=== PATIENT | male | born 1940 | race Two or more races ===

== ENCOUNTER 2018-12-27 15:43 | Inpatient (IN) | payer SELFPAY ==
[~2018-12-27] VITALS: Ht 167.6 cm; Wt 60.3 kg
--- NOTE | 2018-12-27 16:22 | PHYS DOC ---
Adult General Chief Complaint Chief Complaint: SHORTNESS OF BREATH HPI HPI Patient is a 78 year old male who presents with multiple complaints. Patient states that he has been having shortness of air, cough, dizziness that has been ongoing for 3 weeks. She also states that he's had a facial droop that started a week ago, also has had right-sided weakness that started a week ago and that has been making it difficult to eat in the mornings however it improves as the day goes on. Denies any pain currently. Has unknown what medicines this individual is on as he does not have medicine list. Hx of strokes. He is a poor historian. Review of Systems Review of Systems Constitutional: Denies fever or chills [] Eyes: Denies change in visual acuity, redness, or eye pain [] HENT: Denies nasal congestion or sore throat [] Respiratory: Reports cough and shortness of breath [] Cardiovascular: No additional information not addressed in HPI [] GI: Denies abdominal pain, nausea, vomiting, bloody stools or diarrhea [] : Denies dysuria or hematuria [] Musculoskeletal: Denies back pain or joint pain [] Integument: Denies rash or skin lesions [] Neurologic: Reports dizziness that gets better as the day progresses. Denies headache, focal weakness or sensory changes [] Endocrine: Denies polyuria or polydipsia [] Complete systems were reviewed and found to be within normal limits, except as documented in this note. Current Medications Current Medications Allergies Allergies Allergies Coded Allergies Type Severity Reaction Last Updated Verified No Known Drug Allergies 12/27/18 No Physical Exam Physical Exam Constitutional: Well developed, well nourished, no acute distress, non-toxic appearance. [] HENT: Normocephalic, atraumatic, bilateral external ears normal, oropharynx moist, no oral exudates, nose normal. [] Eyes: PERRLA, EOMI, conjunctiva normal, no discharge. [] Neck: Normal range of motion, no tenderness, supple, no stridor. [] Cardiovascular:Heart rate regular rhythm, no murmur [] Lungs & Thorax: Bilateral breath sounds clear to auscultation [] Abdomen: Bowel sounds normal, soft, no tenderness, no masses, no pulsatile masses. [] Skin: Warm, dry, no erythema, no rash. [] Back: No tenderness, no CVA tenderness. [] Extremities: No tenderness, no cyanosis, no clubbing, ROM intact, no edema. [] Neurologic: Alert and oriented X 3, normal motor function, normal sensory function, no focal deficits noted. [] Psychologic: Affect normal, judgement normal, mood normal. [] NIHSS of 3. Administer stroke scale items in the order listed. Record performance in each category after each subscale exam. Do not go back and change scores. Follow directions provided for each exam technique. Scores should reflect what the patient does, not what the clinician thinks the patient can do. The clinician should record answers while administering the exam and work quickly. Except where indicated, the patient should not be coached (i.e., repeated requests to patient to make a special effort). 1a. Level of Consciousness: The retail loss prevention investigator must choose a response if a full evaluation is prevented by such obstacles as an endotracheal tube, language barrier, orotracheal trauma/bandages. A 3 is scored only if the patient makes no movement (other than reflexive posturing) in response to noxious stimulation. 0 = Alert; keenly responsive. 1 = Not alert; but arousable by minor stimulation to obey, answer, or respond. 2 = Not alert; requires repeated stimulation to attend, or is obtunded and requires strong or painful stimulation to make movements (not stereotyped). 3 = Responds only with reflex motor or autonomic effects or totally unresponsive, flaccid, and areflexic. 1b. LOC Questions: The patient is asked the month and his/her age. The answer must be correct - there is no partial credit for being close. Aphasic and stuporous patients who do not comprehend the questions will score 2. Patients unable to speak because of endotracheal intubation, orotracheal trauma, severe dysarthria from any cause, language barrier, or any other problem not secondary to aphasia are given a 1. It is important that only the initial answer be graded and that the examiner not "help" the patient with verbal or non-verbal cues. 0 = Answers both questions correctly. 1 = Answers one question correctly. 2 = Answers neither question correctly. 1c. LOC Commands: The patient is asked to open and close the eyes and then to preschool teacher's assistant and release the non-paretic hand. Substitute another one step command if the hands cannot be used. Credit is given if an unequivocal attempt is made but not completed due to weakness. If the patient does not respond to comm and, the task should be demonstrated to him or her (pantomime), and the result scored (i.e., follows none, one or two commands). Patients with trauma, amputation, or other physical impediments should be given suitable one- step commands. Only the first attempt is scored. 0 = Performs both tasks correctly. 1 = Performs one task correctly. 2 = Performs neither task correctly. 2. Best Gaze: Only horizontal eye movements will be tested. Voluntary or reflexive (oculocephalic) eye movements will be scored, but caloric testing is not done. If the patient has a conjugate deviation of the eyes that can be overcome by voluntary or reflexive activity, the score will be 1. If a patient has an isolated peripheral nerve paresis (CN III, IV or ), score a 1. Gaze is testable in all aphasic patients. Patients with ocular trauma, bandages, pre-existing blindness, or other disorder of visual acuity or funes should be tested with reflexive movements, and a choice made by the retail loss prevention investigator. Establishing eye contact and then moving about the patient from side to side will occasionally clarify the presence of a partial gaze palsy. 0 = Normal. 1 = Partial gaze palsy; gaze is abnormal in one or both eyes, but forced deviation or total gaze paresis is not present. 2 = Forced deviation, or total gaze paresis not overcome by the oculocephalic maneuver. Interval: [ ] Baseline [ ] 2 hours post treatment [ ] 24 hours post onset of symptoms 20 minutes [ ] 7-10 days [ ] 3 months [ ] Other ( ) 3. Visual: Visual funes (upper and lower quadrants) are tested by confrontation, using finger counting or visual threat, as appropriate. Patients may be encouraged, but if they look at the side of the moving fingers appropriately, this can be scored as normal. If there is unilateral blindness or enucleation, visual funes in the remaining eye are scored. Score 1 only if a clear-cut asymmetry, including quadrantanopia, is found. If patient is blind from any cause, score 3. Double simultaneous stimulation is performed at this point. If there is extinction, patient receives a 1, and the results are used to respond to item 11. 0 = No visual loss. 1 = Partial hemianopia. 2 = Complete hemianopia. 3 = Bilateral hemianopia (blind including cortical blindness). 4. Facial Palsy: Ask - or use pantomime to encourage - the patient to show teeth or raise eyebrows and close eyes. Score symmetry of grimace in response to noxious stimuli in the poorly responsive or non-comprehending patient. If facial trauma/bandages, orotracheal tube, tape or other physical barriers obscure the face, these should be removed to the extent possible. 0 = Normal symmetrical movements. 1 = Minor paralysis (flattened nasolabial fold, asymmetry on smiling). 2 = Partial paralysis (total or near-total paralysis of lower face). 3 = Complete paralysis of one or both sides (absence of facial movement in the upper and lower face). 5. Motor Arm: The limb is placed in the appropriate position: extend the arms (palms down) 90 degrees (if sitting) or 45 degrees (if supine). Drift is scored if the arm falls before 10 seconds. The aphasic patient is encouraged using urgency in the voice and pantomime, but not noxious stimulation. Each limb is tested in turn, beginning with the non-paretic arm. Only in the case of amputation or joint fusion at the shoulder, the examiner should record the score as untestable (UN), and clearly write the explanation for this choice. 0 = No drift; limb holds 90 (or 45) degrees for full 10 seconds. 1 = Drift; limb holds 90 (or 45) degrees, but drifts down before full 10 seconds; does not hit bed or other support. 2 = Some effort against gravity; limb cannot get to or maintain (if cued) 90 (or 45) degrees, drifts down to bed, but has some effort against gravity. 3 = No effort against gravity; limb falls. 4 = No movement. UN = Amputation or joint fusion, explain: 5a. Left Arm 5b. Right Arm 6. Motor Leg: The limb is placed in the appropriate position: hold the leg at 30 degrees (always tested supine). Drift is scored if the leg falls before 5 seconds. The aphasic patient is encouraged using urgency in the voice and pantomime, but not noxious stimulation. Each limb is tested in turn, beginning with the non-paretic leg. Only in the case of amputation or joint fusion at the hip, the examiner should record the score as untestable (UN), and clearly write the explanation for this choice. 0 = No drift; leg holds 30-degree position for full 5 seconds. 1 = Drift; leg falls by the end of the 5-second period but does not hit bed. 2 = Some effort against gravity; leg falls to bed by 5 seconds, but has some effort against gravity. 3 = No effort against gravity; leg falls to bed immediately. 4 = No movement. UN = Amputation or joint fusion, explain: 6a. Left Leg 6b. Right Leg Interval: [ ] Baseline [ ] 2 hours post treatment [ ] 24 hours post onset of symptoms 20 minutes [ ] 7-10 days [ ] 3 months [ ] Other ( ) 7. Limb Ataxia: This item is aimed at finding evidence of a unilateral cerebellar lesion. Test with eyes open. In case of visual defect, ensure testing is done in intact visual field. The oytoek-cdyc-saknyp and heel-benson tests are performed on both sides, and ataxia is scored only if present out of proportion to weakness. Ataxia is absent in the patient who cannot understand or is paralyzed. Only in the case of amputation or joint fusion, the examiner should record the score as untestable (UN), and clearly write the explanation for this choice. In case of blindness, test by having the patient touch nose from extended arm position. 0 = Absent. 1 = Present in one limb. 2 = Present in two limbs. UN = Amputation or joint fusion, explain: 8. Sensory: Sensation or grimace to pinprick when tested, or withdrawal from noxious stimulus in the obtunded or aphasic patient. Only sensory loss attributed to stroke is scored as abnormal and the examiner should test as many body areas (arms [not hands], legs, trunk, face) as needed to accurately check for hemisensory loss. A score of 2, "severe or total sensory loss," should only be given when a severe or total loss of sensation can be clearly demonstrated. Stuporous and aphasic patients will, therefore, probably score 1 or 0. The patient with brainstem stroke who has bilateral loss of sensation is scored 2. If the patient does not respond and is quadriplegic, score 2. Patients in a coma (item 1a=3) are automatically given a 2 on this item. 0 = Normal; no sensory loss. 1 = Owfv-lq-vymljrqn sensory loss; patient feels pinprick is less sharp or is dull on the affected side; or there is a loss of superficial pain with pinprick, but patient is aware of being touched. 2 = Severe to total sensory loss; patient is not aware of being touched in the face, arm, and leg. 9. Best Language: A great deal of information about comprehension will be obtained during the preceding sections of the examination. For this scale item, the patient is asked to describe what is happening in the attached picture, to name the items on the attached naming sheet and to read from the attached list of sentences. Comprehension is judged from responses here, as well as to all of the commands in the preceding general neurological exam. If visual loss interferes with the tests, ask the patient to identify objects placed in the hand, repeat, and produce speech. The intubated patient should be asked to write. The patient in a coma (item 1a=3) will automatically score 3 on this item. The examiner must choose a score for the patient with stupor or limited cooperation, but a score of 3 should be used only if the patient is mute and follows no one-step commands. 0 = No aphasia; normal. 1 = Hfvx-bc-vmrqztwe aphasia; some obvious loss of fluency or facility of comprehension, without significant limitation on ideas expressed or form of expression. Reduction of speech and/or comprehension, however, makes conversation about provided materials difficult or impossible. For example, in conversation about provided materials, examiner can identify picture or naming card content from patient's response. 2 = Severe aphasia; all communication is through fragmentary expression; great need for inference, questioning, and guessing by the listener. Range of information that can be exchanged is limited; listener carries burden of communication. Examiner cannot identify materials provided from patient response. 3 = Mute, global aphasia; no usable speech or auditory comprehension. 10. Dysarthria: If patient is thought to be normal, an adequate sample of speech must be obtained by asking patient to read or repeat words from the attached list. If the patient has severe aphasia, the clarity of articulation of spontaneous speech can be rated. Only if the patient is intubated or has other physical barriers to producing speech, the examiner should record the score as untestable (UN), and clearly write an explanation for this choice. Do not tell the patient why he or she is being tested. 0 = Normal. 1 = Gdyk-mc-hdwcwpwj dysarthria; patient slurs at least some words and, at wors t, can be understood with some difficulty. 2 = Severe dysarthria; patient's speech is so slurred as to be unintelligible in the absence of or out of proportion to any dysphasia, or is mute/anarthric. UN = Intubated or other physical barrier, explain: Interval: [ ] Baseline [ ] 2 hours post treatment [ ] 24 hours post onset of symptoms 20 minutes [ ] 7-10 days [ ] 3 months [ ] Other ( ) 11. Extinction and Inattention (formerly Neglect): Sufficient information to identify neglect may be obtained during the prior testing. If the patient has a severe visual loss preventing visual double simultaneous stimulation, and the cutaneous stimuli are normal, the score is normal. If the patient has aphasia but does appear to attend to both sides, the score is benoit l. The presence of visual spatial neglect or anosagnosia may also be taken as evidence of abnormality. Since the abnormality is scored only if present, the item is never untestable. 0 = No abnormality. 1 = Visual, tactile, auditory, spatial, or personal inattention or extinction to bilateral simultaneous stimulation in one of the sensory modalities. 2 = Profound luis-inattention or extinction to more than one modality; does not recognize own hand or orients to only one side of space. Current Patient Data Vital Signs Vital Signs Date Time Temp Pulse Resp B/P (MAP) Pulse Ox O2 Delivery O2 Flow Rate FiO2 12/27/18 16:00 98.6 71 23 184/86 (118) 95 Room Air 98.6 Lab Values Laboratory Tests Test 12/27/18 16:12 12/27/18 16:17 White Blood Count 6.0 x10^3/uL (4.0-11.0) Red Blood Count 2.00 x10^6/uL (4.30-5.70) L Hemoglobin 6.0 g/dL (13.0-17.5) *L Hematocrit 18.5 % (39.0-53.0) *L Mean Corpuscular Volume 93 fL (79-100) Mean Corpuscular Hemoglobin 30 pg (25-35) Mean Corpuscular Hemoglobin Concent 33 g/dL (31-37) Red Cell Distribution Width 14.9 % (11.5-14.5) H Platelet Count 222 x10^3/uL (140-400) Neutrophils (%) (Auto) 56 % (31-73) Lymphocytes (%) (Auto) 26 % (24-48) Monocytes (%) (Auto) 14 % (0-9) H Eosinophils (%) (Auto) 3 % (0-3) Basophils (%) (Auto) 2 % (0-3) Neutrophils # (Auto) 3.3 x10^3uL (1.8-7.7) Lymphocytes # (Auto) 1.6 x10^3/uL (1.0-4.8) Monocytes # (Auto) 0.8 x10^3/uL (0.0-1.1) Eosinophils # (Auto) 0.2 x10^3/uL (0.0-0.7) Basophils # (Auto) 0.1 x10^3/uL (0.0-0.2) Prothrombin Time 28.2 SEC (11.7-14.0) H Prothrombin Time INR 2.7 (0.8-1.1) H PTT 43 SEC (24-38) H Sodium Level 142 mmol/L (136-145) Potassium Level 4.1 mmol/L (3.5-5.1) Chloride Level 107 mmol/L (98-107) Carbon Dioxide Level 24 mmol/L (21-32) Anion Gap 11 (6-14) Blood Urea Nitrogen 20 mg/dL (8-26) Creatinine 0.9 mg/dL (0.7-1.3) Estimated GFR (Cockcroft-Gault) 81.6 BUN/Creatinine Ratio 22 (6-20) H Glucose Level 118 mg/dL (70-99) H Calcium Level 8.3 mg/dL (8.5-10.1) L Total Bilirubin 0.4 mg/dL (0.2-1.0) Aspartate Amino Transferase (AST) 21 U/L (15-37) Alanine Aminotransferase (ALT) 42 U/L (16-63) Alkaline Phosphatase 59 U/L (46-116) Troponin I Quantitative < 0.017 ng/mL (0.000-0.055) GM-Smc-A-Type Natriuretic Peptide 3879 pg/mL (0-449) H Total Protein 5.9 g/dL (6.4-8.2) L Albumin 3.2 g/dL (3.4-5.0) L Albumin/Globulin Ratio 1.2 (1.0-1.7) Lipase 143 U/L (73-393) Urine Collection Type Unknown Urine Color Yellow Urine Clarity Clear Urine pH 6.5 Urine Specific [place] 1.015 Urine Protein 30 mg/dL (NEG-TRACE) Urine Glucose (UA) Negative mg/dL (NEG) Urine Ketones (Stick) Negative mg/dL (NEG) Urine Blood Negative (NEG) Urine Nitrite Negative (NEG) Urine Bilirubin Negative (NEG) Urine Urobilinogen Dipstick 1.0 mg/dL (0.2 mg/dL) Urine Leukocyte Esterase Negative (NEG) Urine RBC 1-2 /HPF (0-2) Urine WBC Occ /HPF (0-4) Urine Squamous Epithelial Cells Occ /LPF Urine Bacteria 0 /HPF (0-FEW) Laboratory Tests 12/27/18 16:12 Laboratory Tests 12/27/18 16:12 EKG EKG EKG interpreted by Dr. Pulido.[] Left Bundle Branch Block, Sinus of 73, No STEMI Radiology/Procedures Radiology/Procedures []PATIENT: CASSIUS AMOSACCOUNT: [id number]#: [id number] : 1940 LOCATION: ER AGE: 78 SEX: M EXAM STATUS: REG ER ORD. PHYSICIAN: DANISH SYED APRN REASON: R sided weakness and droop, short of air PROCEDURE: CT ANGIOGRAPHY CHEST CT ANGIOGRAPHY CHEST Indication: Right-sided weakness. Shortness of breath. . Technique: After intravenous contrast administration, CT imaging was performed of the chest. MIP reconstructions were obtained. Exposure: One or more of the following individualized dose reduction techniques were utilized for this examination: 1. Automated exposure control 2. Adjustment of the mA and/or kV according to patient size 3. Use of iterative reconstruction technique. No prior study for comparison FINDINGS: No evidence of pulmonary embolism. The ascending aorta measures 3.9 cm compatible with mild ectasia. No descending aortic aneurysm. Mild aortic calcification. There is a limited opacification of the aorta due to technique but no definite dissection. No significant lymph node enlargement. No evidence of thyroid mass. Coronary artery calcification. Heart size mildly enlarged. No pericardial effusion. Small left pleural effusion. Ehtwo-oy-bjzlcvoe right pleural effusion. Prominent interstitial opacities in both lungs. There is some atelectasis. No dense lobar consolidation. There does appear to be mild central pulmonary venous congestion. The trachea and mainstem bronchi are patent. Mild bronchial wall thickening bilaterally. Mild degenerative changes of the spine. There is deformity of the inferior sternum presumably due to an old fracture. No evidence of destructive bone lesion. Scans through the upper abdomen are limited by technique. There is a round density within the gallbladder fossa compatible with a gallstone in a contracted gallbladder or possibly milk of calcium bile in a contracted gallbladder. IMPRESSION: 1. No evidence of pulmonary embolism. 2. Bilateral pleural effusions. 3. Interstitial opacities in both lungs, with a probable component of mild pulmonary edema and vascular congestion. Correlate clinically for congestive failure. Interstitial pneumonitis is also possible. 4. Round density within the gallbladder fossa. The gallbladder itself is difficult to define. This could represent a gallstone or dense bile within a contracted gallbladder. Gallbladder ultrasound could further evaluate. 5. Mild ascending aorta ectasia. Electronically signed by: Danish Jenkins MD (12/27/2018 5:25 PM) [id number] PATIENT: CASSIUS AMOS ACCOUNT: [id number] : 1940 LOCATION: ER AGE: 78 SEX: M EXAM STATUS: REG ER ORD. PHYSICIAN: DANISH SYED APRN REASON: soa PROCEDURE: PORTABLE CHEST 1V PORTABLE CHEST 1V History: Shortness of breath.. No prior for comparison. Cardiac silhouette is enlarged. Elevation of left hemidiaphragm/lung base. No evidence of pneumothorax. No evidence of effusion. Diffuse interstitial opacities. No dense lobar airspace consolidation. IMPRESSION: Diffuse interstitial opacities, could represent chronic fibrosis versus more acute edema/pneumonitis. Electronically signed by: Danish Jenkins MD (12/27/2018 5:15 PM) [facility] PATIENT: CASSIUS AMOS ACCOUNT: [id number] : 1940 LOCATION: ER AGE: 78 SEX: M EXAM STATUS: REG ER ORD. PHYSICIAN: DANISH SYED APRN REASON: R sided weakness and droop PROCEDURE: CT HEAD WO CONTRAST EXAM: Head CT without contrast. HISTORY: Right-sided weakness and droop. TECHNIQUE: Computed tomographic images of the head were obtained without contrast. *One or more of the following individualized dose reduction techniques were utilized for this examination: 1. Automated exposure control. 2. Adjustment of the mA and/or kV according to patient size. 3. Use of iterative reconstruction technique. COMPARISON: None. FINDINGS: There is no acute or subacute extra-axial or intraparenchymal hemorrhage. There is no mass effect or midline shift. There is no hydrocephalus. There are areas of decreased attenuation within the cerebral white matter, nonspecific and likely related to chronic small vessel disease. There is focal hypodensity within the left basal ganglia and adjacent centrum semiovale, likely due to chronic infarction. There are also suspected chronic infarct within the right basal ganglia an left abdulaziz. There is paranasal sinus mucosal thickening. There is a chronic right lamina appreciable fracture. There is evidence of right lens surgery. The mastoid air cells are clear. There is no suspicious osseous lesion. IMPRESSION: 1. No acute intracranial finding. Note is made that MRI is more sensitive for acute infarction. 2. Suspected chronic infarcts within the left basal ganglia and adjacent centrum semiovale, right basal ganglia and left abdulaziz. These can be better characterized with MRI. 3. Scattered areas of hypodensity within the cerebral white matter, likely due to chronic small vessel disease. Electronically signed by: Batsheva Bailey MD (12/27/2018 5:07 PM) [facility] Course & Med Decision Making Course & Med Decision Making Pertinent Labs and Imaging studies reviewed. (See chart for details) Discussed getting labs, CT, will call Dr. Giraldo's office for medicine list and history. Has hemoglobin of 6.0. Will type and cross and order 1 unit of RBC. BNP is elevated. Will call Dr. Giraldo for admission. Dr. Giraldo agreed to admission. Will consult GI, and order lasix. Dragon Disclaimer Dragon Disclaimer This electronic medical record was generated, in whole or in part, using a voice recognition dictation system. Departure Departure Impression: Primary Impression: Anemia Additional Impression: Acute exacerbation of CHF (congestive heart failure) Disposition: ADMITTED INPATIENT Admitting Physician: Danish Giraldo Referrals: DANISH GIRALDO MD (PCP) Problem Qualifiers Primary Impression: Anemia Anemia type: unspecified type Qualified Codes: D64.9 - Anemia, unspecified Additional Impression: Acute exacerbation of CHF (congestive heart failure) Heart failure type: unspecified Qualified Codes: I50.9 - Heart failure, unspecified DANISH SYED APRN Dec 27, 2018 16:22
--- NOTE | 2018-12-27 16:24 | EKG ---
[facility] [address] [place] [address] Test Date: 2018-12-27 Test Time: 15:55:57 Pat Name: CASSIUS AMOS Department: Room: Gender: M [employer] Finisher: : 1940 Requested By: JULIET SYED Order Number: [id number] Reading MD: Measurements Intervals [place] Rate: 72 P: 0 IL: 188 QRS: -28 QRSD: 138 T: 83 QT: 410 QTc: 455 Interpretive Statements SINUS RHYTHM LEFTWARD AXIS LEFT BUNDLE BRANCH BLOCK ABNORMAL ECG No previous ECG available for comparison
[2018-12-27 16:30] LABS: BILIRUBIN,URINE NEGATIVE (NEG); CLARITY,URINE CLEAR; COLOR,URINE YELLOW; NITRITE,URINE NEGATIVE (NEG); PH,URINE 6.5; PROTEIN,URINE 30 mg/dL (NEG-TRACE)
[2018-12-27 16:31] LABS: BASO # 0.1 x10^3/uL (0.0-0.2); BASO % 2 % (0-3); EOS # 0.2 x10^3/uL (0.0-0.7); EOS % 3 % (0-3); LYMPH # 1.6 x10^3/uL (1.0-4.8); LYMPH % 26 % (24-48); MEAN CORPUSCULAR HEMOGLOBIN 30 pg (25-35); MEAN CORPUSCULAR HGB CONC 33 g/dL (31-37); MEAN CORPUSCULAR VOLUME 93 fL (79-100); MONO # 0.8 x10^3/uL (0.0-1.1); MONO % 14 % (0-9); NEUT # 3.3 x10^3uL (1.8-7.7); NEUT % 56 % (31-73); PLATELET COUNT 222 x10^3/uL (140-400); RED CELL DISTRIBUTION WIDTH 14.9 % (11.5-14.5)
[2018-12-27 16:34] LABS: PROTHROMBIN TIME PATIENT 28.2 SEC (11.7-14.0)
[2018-12-27 16:35] LABS: CALCIUM 8.3 mg/dL (8.5-10.1); CREATININE 0.9 mg/dL (0.7-1.3); GFR 81.6; POTASSIUM 4.1 mmol/L (3.5-5.1)
[2018-12-27 16:39] LABS: HEMATOCRIT 18.5 % (39.0-53.0)
[2018-12-27 16:45] LABS: BACTERIA,URINE 0 /HPF (0-FEW); SQUAMOUS EPITHELIAL CELL,UR OCC /LPF; WBC,URINE OCC /HPF (0-4)
[2018-12-27] MEDS ORDERED: IOHEXOL 350 MG/ML 100 ML VIAL. IV ONE (17:00)
[2018-12-27] MEDS ORDERED: CONTRAST GIVEN. MC PRN (17:00)
[2018-12-27 17:04] LABS: ALBUMIN 3.2 g/dL (3.4-5.0); ALBUMIN/GLOBULIN RATIO 1.2 (1.0-1.7); TOTAL BILIRUBIN 0.4 mg/dL (0.2-1.0); TOTAL PROTEIN 5.9 g/dL (6.4-8.2)
--- NOTE | 2018-12-27 17:10 | RAD ---
EXAM: Head CT without contrast. HISTORY: Right-sided weakness and droop. TECHNIQUE: Computed tomographic images of the head were obtained without contrast. *One or more of the following individualized dose reduction techniques were utilized for this examination: 1. Automated exposure control. 2. Adjustment of the mA and/or kV according to patient size. 3. Use of iterative reconstruction technique. COMPARISON: None. FINDINGS: There is no acute or subacute extra-axial or intraparenchymal hemorrhage. There is no mass effect or midline shift. There is no hydrocephalus. There are areas of decreased attenuation within the cerebral white matter, nonspecific and likely related to chronic small vessel disease. There is focal hypodensity within the left basal ganglia and adjacent centrum semiovale, likely due to chronic infarction. There are also suspected chronic infarct within the right basal ganglia an left abdulaziz. There is paranasal sinus mucosal thickening. There is a chronic right lamina appreciable fracture. There is evidence of right lens surgery. The mastoid air cells are clear. There is no suspicious osseous lesion. IMPRESSION: 1. No acute intracranial finding. Note is made that MRI is more sensitive for acute infarction. 2. Suspected chronic infarcts within the left basal ganglia and adjacent centrum semiovale, right basal ganglia and left abdulaziz. These can be better characterized with MRI. 3. Scattered areas of hypodensity within the cerebral white matter, likely due to chronic small vessel disease. Electronically signed by: Batsheva Bailey MD (12/27/2018 5:07 PM) [facility]
[2018-12-27] MEDS ORDERED: MORPHINE SULFATE 2 MG/ML VIAL. IV PRN (17:15)
[2018-12-27] MEDS ORDERED: ONDANSETRON PF 4 MG/2 ML VIAL. IV PRN (17:15)
--- NOTE | 2018-12-27 17:18 | RAD ---
PORTABLE CHEST 1V History: Shortness of breath.. No prior for comparison. Cardiac silhouette is enlarged. Elevation of left hemidiaphragm/lung base. No evidence of pneumothorax. No evidence of effusion. Diffuse interstitial opacities. No dense lobar airspace consolidation. IMPRESSION: Diffuse interstitial opacities, could represent chronic fibrosis versus more acute edema/pneumonitis. Electronically signed by: Danish Jenkins MD (12/27/2018 5:15 PM) [facility]
--- NOTE | 2018-12-27 17:27 | RAD ---
CT ANGIOGRAPHY CHEST Indication: Right-sided weakness. Shortness of breath. . Technique: After intravenous contrast administration, CT imaging was performed of the chest. MIP reconstructions were obtained. Exposure: One or more of the following individualized dose reduction techniques were utilized for this examination: 1. Automated exposure control 2. Adjustment of the mA and/or kV according to patient size 3. Use of iterative reconstruction technique. No prior study for comparison FINDINGS: No evidence of pulmonary embolism. The ascending aorta measures 3.9 cm compatible with mild ectasia. No descending aortic aneurysm. Mild aortic calcification. There is a limited opacification of the aorta due to technique but no definite dissection. No significant lymph node enlargement. No evidence of thyroid mass. Coronary artery calcification. Heart size mildly enlarged. No pericardial effusion. Small left pleural effusion. Zhqok-pm-nozkaobi right pleural effusion. Prominent interstitial opacities in both lungs. There is some atelectasis. No dense lobar consolidation. There does appear to be mild central pulmonary venous congestion. The trachea and mainstem bronchi are patent. Mild bronchial wall thickening bilaterally. Mild degenerative changes of the spine. There is deformity of the inferior sternum presumably due to an old fracture. No evidence of destructive bone lesion. Scans through the upper abdomen are limited by technique. There is a round density within the gallbladder fossa compatible with a gallstone in a contracted gallbladder or possibly milk of calcium bile in a contracted gallbladder. IMPRESSION: 1. No evidence of pulmonary embolism. 2. Bilateral pleural effusions. 3. Interstitial opacities in both lungs, with a probable component of mild pulmonary edema and vascular congestion. Correlate clinically for congestive failure. Interstitial pneumonitis is also possible. 4. Round density within the gallbladder fossa. The gallbladder itself is difficult to define. This could represent a gallstone or dense bile within a contracted gallbladder. Gallbladder ultrasound could further evaluate. 5. Mild ascending aorta ectasia. Electronically signed by: Danish Jenkins MD (12/27/2018 5:25 PM) [facility]
[2018-12-27] MEDS ORDERED: FUROSEMIDE 20 MG/2 ML VIAL. IVP ONE (17:45)
--- NOTE | 2018-12-27 18:27 | NUR ---
Consult for low hemoglobin called to Dr. Hahn's office at 1828.
[2018-12-27 19:30] VITALS: BP 119/71
[2018-12-27 20:56] VITALS: BP 119/71
[2018-12-27] MEDS: PANTOPRAZOLE 40 MG TABLET.DR. PO SCH (21:00)
[2018-12-27 21:16] VITALS: BP 174/78
[2018-12-27 22:15] VITALS: BP 176/81
[2018-12-27] MEDS ORDERED: TAMS0.4C97 PO (22:52)
[2018-12-27] MEDS ORDERED: WARF2TAB96 PO (22:52)
[2018-12-27] MEDS ORDERED: LISI10TA2 PO (22:52)
[2018-12-27] MEDS ORDERED: FINA5TAB4 PO (22:52)
[2018-12-27] MEDS ORDERED: MIRA25TA PO (22:52)
[2018-12-27] MEDS ORDERED: OMEP20CA10 PO (22:52)
[2018-12-27] MEDS ORDERED: METO50TA6 PO (22:52)
[2018-12-27] MEDS ORDERED: METF500T16 PO (22:59)
[2018-12-27] MEDS ORDERED: ATOR20TA58 PO (22:59)
[2018-12-27 23:17] VITALS: BP 166/71
[2018-12-27 23:35] VITALS: BP 166/71
[2018-12-28] VITALS (11 sets, daily range): BP systolic 149–178; BP diastolic 70–85
[2018-12-28 03:31] LABS: BASO # 0.1 x10^3/uL (0.0-0.2); BASO % 1 % (0-3); EOS # 0.2 x10^3/uL (0.0-0.7); EOS % 3 % (0-3); HEMATOCRIT 24.3 % (39.0-53.0); HEMOGLOBIN 8.2 g/dL (13.0-17.5); LYMPH # 2.3 x10^3/uL (1.0-4.8); LYMPH % 34 % (24-48); MEAN CORPUSCULAR HEMOGLOBIN 30 pg (25-35); MEAN CORPUSCULAR HGB CONC 34 g/dL (31-37); MEAN CORPUSCULAR VOLUME 89 fL (79-100); MONO % 15 % (0-9); NEUT # 3.2 x10^3uL (1.8-7.7); NEUT % 48 % (31-73); PLATELET COUNT 205 x10^3/uL (140-400); RED BLOOD COUNT 2.74 x10^6/uL (4.30-5.70); RED CELL DISTRIBUTION WIDTH 16.4 % (11.5-14.5); WHITE BLOOD COUNT 6.8 x10^3/uL (4.0-11.0)
[2018-12-28] MEDS ORDERED: PROPOFOL 40 ML IV ONE (07:11)
[2018-12-28] MEDS ORDERED: LIDOCAINE 2% PF 5 ML VIAL. ONE (07:11)
--- NOTE | 2018-12-28 07:17 | PDOC2 ---
CONSULT Date of Consult Date of Consult DATE: 12/28/18 TIME: 07:15 Reason for Consult Reason for Consult: Anemia/melena Current Problem List Problem List Problems Medical Problems: (1) Acute exacerbation of CHF (congestive heart failure) Status: Acute (2) Anemia Status: Acute Current Medications Current Medications Current Medications Iohexol (Omnipaque 350 Mg/ml) 90 ml 1X ONCE IV Last administered on 12/27/18at 17:00; Start 12/27/18 at 17:00; Stop 12/27/18 at 17:01; Status DC Info (CONTRAST GIVEN -- Rx MONITORING) 1 each PRN DAILY PRN MC SEE COMMENTS; Start 12/27/18 at 17:00; Stop 12/29/18 at 16:59 Ondansetron HCl (Zofran) 4 mg PRN Q8HRS PRN IV NAUSEA/VOMITING; Start 12/27/18 at 17:15; Stop 12/28/18 at 17:14 Morphine Sulfate (Morphine Sulfate) 2 mg PRN Q2HR PRN IV PAIN; Start 12/27/18 at 17:15; Stop 12/28/18 at 17:14 Furosemide (Lasix) 20 mg 1X ONCE IVP Last administered on 12/27/18at 17:56; Start 12/27/18 at 17:45; Stop 12/27/18 at 17:46; Status DC Pantoprazole Sodium (Protonix) 40 mg DAILY08 PO ; Start 12/27/18 at 21:00 Active Scripts Active Reported Metformin Hcl 500 Mg Tablet 500 Mg PO BIDWMEALS Atorvastatin Calcium 20 Mg Tablet 20 Mg PO HS Lisinopril 10 Mg Tablet 1 Tab PO DAILY Metoprolol Tartrate 50 Mg Tablet 1 Tab PO BID Warfarin Sodium 2 Mg Tablet 2 Mg PO DAILY Omeprazole 20 Mg Capsule.dr 1 Cap PO DAILY Myrbetriq (Mirabegron) 25 Mg Tab.er.24h 25 Mg PO DAILY Flomax (Tamsulosin Hcl) 0.4 Mg Cap.er.24h 2 Cap PO DAILY Finasteride 5 Mg Tablet 1 Tab PO DAILY Allergies Allergies: Coded Allergies: No Known Drug Allergies (Unverified , 12/27/18) Vitals VITALS Vital Signs Date Time Temp Pulse Resp B/P (MAP) Pulse Ox O2 Delivery O2 Flow Rate FiO2 12/28/18 03:35 98.4 63 18 177/74 (108) 95 Room Air 98.4 Labs Labs Laboratory Tests Test 12/27/18 16:12 12/27/18 16:17 12/27/18 21:31 12/28/18 02:55 White Blood Count 6.0 x10^3/uL (4.0-11.0) 6.8 x10^3/uL (4.0-11.0) Red Blood Count 2.00 x10^6/uL (4.30-5.70) 2.74 x10^6/uL (4.30-5.70) Hemoglobin 6.0 g/dL (13.0-17.5) 8.2 g/dL (13.0-17.5) Hematocrit 18.5 % (39.0-53.0) 24.3 % (39.0-53.0) Mean Corpuscular Volume 93 fL (79-100) 89 fL (79-100) Mean Corpuscular Hemoglobin 30 pg (25-35) 30 pg (25-35) Mean Corpuscular Hemoglobin Concent 33 g/dL (31-37) 34 g/dL (31-37) Red Cell Distribution Width 14.9 % (11.5-14.5) 16.4 % (11.5-14.5) Platelet Count 222 x10^3/uL (140-400) 205 x10^3/uL (140-400) Neutrophils (%) (Auto) 56 % (31-73) 48 % (31-73) Lymphocytes (%) (Auto) 26 % (24-48) 34 % (24-48) Monocytes (%) (Auto) 14 % (0-9) 15 % (0-9) Eosinophils (%) (Auto) 3 % (0-3) 3 % (0-3) Basophils (%) (Auto) 2 % (0-3) 1 % (0-3) Neutrophils # (Auto) 3.3 x10^3uL (1.8-7.7) 3.2 x10^3uL (1.8-7.7) Lymphocytes # (Auto) 1.6 x10^3/uL (1.0-4.8) 2.3 x10^3/uL (1.0-4.8) Monocytes # (Auto) 0.8 x10^3/uL (0.0-1.1) 1.0 x10^3/uL (0.0-1.1) Eosinophils # (Auto) 0.2 x10^3/uL (0.0-0.7) 0.2 x10^3/uL (0.0-0.7) Basophils # (Auto) 0.1 x10^3/uL (0.0-0.2) 0.1 x10^3/uL (0.0-0.2) Prothrombin Time 28.2 SEC (11.7-14.0) Prothromb Time International Ratio 2.7 (0.8-1.1) Activated Partial Thromboplast Time 43 SEC (24-38) Sodium Level 142 mmol/L (136-145) Potassium Level 4.1 mmol/L (3.5-5.1) Chloride Level 107 mmol/L (98-107) Carbon Dioxide Level 24 mmol/L (21-32) Anion Gap 11 (6-14) Blood Urea Nitrogen 20 mg/dL (8-26) Creatinine 0.9 mg/dL (0.7-1.3) Estimated GFR (Cockcroft-Gault) 81.6 BUN/Creatinine Ratio 22 (6-20) Glucose Level 118 mg/dL (70-99) Calcium Level 8.3 mg/dL (8.5-10.1) Total Bilirubin 0.4 mg/dL (0.2-1.0) Aspartate Amino Transf (AST/SGOT) 21 U/L (15-37) Alanine Aminotransferase (ALT/SGPT) 42 U/L (16-63) Alkaline Phosphatase 59 U/L (46-116) Troponin I Quantitative < 0.017 ng/mL (0.000-0.055) LT-Cxp-M-Type Natriuretic Peptide 3879 pg/mL (0-449) Total Protein 5.9 g/dL (6.4-8.2) Albumin 3.2 g/dL (3.4-5.0) Albumin/Globulin Ratio 1.2 (1.0-1.7) Lipase 143 U/L (73-393) Urine Collection Type Unknown Urine Color Yellow Urine Clarity Clear Urine pH 6.5 Urine Specific [place] 1.015 Urine Protein 30 mg/dL (NEG-TRACE) Urine Glucose (UA) Negative mg/dL (NEG) Urine Ketones (Stick) Negative mg/dL (NEG) Urine Blood Negative (NEG) Urine Nitrite Negative (NEG) Urine Bilirubin Negative (NEG) Urine Urobilinogen Dipstick 1.0 mg/dL (0.2 mg/dL) Urine Leukocyte Esterase Negative (NEG) Urine RBC 1-2 /HPF (0-2) Urine WBC Occ /HPF (0-4) Urine Squamous Epithelial Cells Occ /LPF Urine Bacteria 0 /HPF (0-FEW) Glucose (Fingerstick) 130 mg/dL (70-99) Laboratory Tests Test 12/27/18 16:12 12/27/18 16:17 12/27/18 21:31 12/28/18 02:55 White Blood Count 6.0 x10^3/uL (4.0-11.0) 6.8 x10^3/uL (4.0-11.0) Red Blood Count 2.00 x10^6/uL (4.30-5.70) 2.74 x10^6/uL (4.30-5.70) Hemoglobin 6.0 g/dL (13.0-17.5) 8.2 g/dL (13.0-17.5) Hematocrit 18.5 % (39.0-53.0) 24.3 % (39.0-53.0) Mean Corpuscular Volume 93 fL (79-100) 89 fL (79-100) Mean Corpuscular Hemoglobin 30 pg (25-35) 30 pg (25-35) Mean Corpuscular Hemoglobin Concent 33 g/dL (31-37) 34 g/dL (31-37) Red Cell Distribution Width 14.9 % (11.5-14.5) 16.4 % (11.5-14.5) Platelet Count 222 x10^3/uL (140-400) 205 x10^3/uL (140-400) Neutrophils (%) (Auto) 56 % (31-73) 48 % (31-73) Lymphocytes (%) (Auto) 26 % (24-48) 34 % (24-48) Monocytes (%) (Auto) 14 % (0-9) 15 % (0-9) Eosinophils (%) (Auto) 3 % (0-3) 3 % (0-3) Basophils (%) (Auto) 2 % (0-3) 1 % (0-3) Neutrophils # (Auto) 3.3 x10^3uL (1.8-7.7) 3.2 x10^3uL (1.8-7.7) Lymphocytes # (Auto) 1.6 x10^3/uL (1.0-4.8) 2.3 x10^3/uL (1.0-4.8) Monocytes # (Auto) 0.8 x10^3/uL (0.0-1.1) 1.0 x10^3/uL (0.0-1.1) Eosinophils # (Auto) 0.2 x10^3/uL (0.0-0.7) 0.2 x10^3/uL (0.0-0.7) Basophils # (Auto) 0.1 x10^3/uL (0.0-0.2) 0.1 x10^3/uL (0.0-0.2) Prothrombin Time 28.2 SEC (11.7-14.0) Prothromb Time International Ratio 2.7 (0.8-1.1) Activated Partial Thromboplast Time 43 SEC (24-38) Sodium Level 142 mmol/L (136-145) Potassium Level 4.1 mmol/L (3.5-5.1) Chloride Level 107 mmol/L (98-107) Carbon Dioxide Level 24 mmol/L (21-32) Anion Gap 11 (6-14) Blood Urea Nitrogen 20 mg/dL (8-26) Creatinine 0.9 mg/dL (0.7-1.3) Estimated GFR (Cockcroft-Gault) 81.6 BUN/Creatinine Ratio 22 (6-20) Glucose Level 118 mg/dL (70-99) Calcium Level 8.3 mg/dL (8.5-10.1) Total Bilirubin 0.4 mg/dL (0.2-1.0) Aspartate Amino Transf (AST/SGOT) 21 U/L (15-37) Alanine Aminotransferase (ALT/SGPT) 42 U/L (16-63) Alkaline Phosphatase 59 U/L (46-116) Troponin I Quantitative < 0.017 ng/mL (0.000-0.055) OC-Lxo-I-Type Natriuretic Peptide 3879 pg/mL (0-449) Total Protein 5.9 g/dL (6.4-8.2) Albumin 3.2 g/dL (3.4-5.0) Albumin/Globulin Ratio 1.2 (1.0-1.7) Lipase 143 U/L (73-393) Urine Collection Type Unknown Urine Color Yellow Urine Clarity Clear Urine pH 6.5 Urine Specific [place] 1.015 Urine Protein 30 mg/dL (NEG-TRACE) Urine Glucose (UA) Negative mg/dL (NEG) Urine Ketones (Stick) Negative mg/dL (NEG) Urine Blood Negative (NEG) Urine Nitrite Negative (NEG) Urine Bilirubin Negative (NEG) Urine Urobilinogen Dipstick 1.0 mg/dL (0.2 mg/dL) Urine Leukocyte Esterase Negative (NEG) Urine RBC 1-2 /HPF (0-2) Urine WBC Occ /HPF (0-4) Urine Squamous Epithelial Cells Occ /LPF Urine Bacteria 0 /HPF (0-FEW) Glucose (Fingerstick) 130 mg/dL (70-99) Assessment/Plan Assessment/Plan Anemia- with melena, etiology to be determined. Differential includes: PUD, Bajwa's, IBD, colon/gastric cancer/polyps, AVMS, and/or celiac disease. Plan transfusional support PPI daily EGD to further assess. If unrevealing, then o/p colonoscopy to follow. Full note dictated SHAKIRA GARCIA MD Dec 28, 2018 07:17
--- NOTE | 2018-12-28 07:28 | PDOC4 ---
Operative Note Operative Note EGD Meds propofol per anesthesia Pre-op dx anemia/melena post-op dx non-erosive gastritis Plan advance diet o/p colonoscopy to further assess SHAKIRA GARCIA MD Dec 28, 2018 07:28
[2018-12-28] MEDS: INSULIN LISPRO 300 UNITS/3 ML INSULN.PEN. SQ SCH ×4 (09:30→20:51)
[2018-12-28] MEDS ORDERED: LISINOPRIL 10 MG TABLET PO SCH (10:00)
[2018-12-28] MEDS ORDERED: PANTOPRAZOLE 40 MG TABLET.DR. PO SCH (10:00)
[2018-12-28 10:14] LABS: CALCIUM 8.2 mg/dL (8.5-10.1); CREATININE 1.1 mg/dL (0.7-1.3); GFR 64.7; MAGNESIUM 1.9 mg/dL (1.8-2.4); POTASSIUM 3.5 mmol/L (3.5-5.1)
[2018-12-28] MEDS: FINASTERIDE 5 MG TABLET. PO SCH (10:16)
[2018-12-28] MEDS: PANTOPRAZOLE 40 MG TABLET.DR. PO SCH (10:16)
[2018-12-28] MEDS: METOPROLOL TART IMMED RELEASE 50 MG TABLET. PO SCH ×2 (10:16→20:55)
[2018-12-28] MEDS: TAMSULOSIN 0.4 MG CAP.ER.24H. PO SCH (10:16)
--- NOTE | 2018-12-28 11:43 | NUR ---
SW following pt for anticipated dc needs. Chart reviewed and discussed with RN. Pt lives at home with family. RN reported pt is standby assist with ambulation. No SW needs at this time. Will continue to eval needs. Addendum: 12/29/18 at 0902 by MICHELLE GOODRICH SW Pt seen by PT/OT and no skilled needs indicated at this time.
--- NOTE | 2018-12-28 12:13 | CARD ---
MR#: [id number] Date of Study: 12/28/2018 Ordering Physician: CYNTHIA GIFFORD, Referring Physician: JULIET POSEY Tech: Nuris Noyola CORDELL APPROVED REPORT EXAM: Two-dimensional and M-mode echocardiogram with Doppler and color Doppler. Other Information Quality : GoodHR: 55bpm Rhythm : Bradycardia INDICATION Congenital Heart Disease 2D DIMENSIONS RVDd3.2 (2.9-3.5cm)Left Atrium(2D)3.6 (1.6-4.0cm) IVSd1.2 (0.7-1.1cm)Aortic Root(2D)3.4 (2.0-3.7cm) LVDd5.4 (3.9-5.9cm)LVOT Diameter2.0 (1.8-2.4cm) PWd1.2 (0.7-1.1cm)IVSs1.3 (0.8-1.2cm) LVDs4.5 (2.5-4.0cm)FS (%) 17.1 % PWs1.3 (0.8-1.2cm)SV50.7 ml LVEF(%)35.0 (>50%) M-Mode DIMENSIONS Left Atrium(MM)3.48 (2.5-4.0cm)Aortic Root3.88 (2.2-3.7cm) Aortic Valve AoV Peak Lauri.114.5cm/sAoV VTI22.7cm AO Peak GR.5.2mmHgLVOT Peak Lauri.67.1cm/s LVOT VTI 14.58cmAO Mean GR.3mmHg JUNIE (VMAX)1.87xn7AJY (VTI)1.98cm2 Mitral Valve MV E Tdokkuzw20.8cm/sMV E Peak Gr.94mmHg MV DECEL WRDC750sjHD A Ksdazjca65.9cm/s MV BPP52tqP/A Ratio2.7 MVA (PHT)3.90cm2 Pulmonary Valve PV Peak Qlhcgcjz03.8cm/sPV Peak Grad.1mmHg Tricuspid Valve TR P. Tcdbffwv372nd/sRAP PQAXVWAU3awFx TR Peak Gr.14bxNeSAYW60ewHz Pulmonary Vein S1 Rfgzgxgf77.8cm/sD2 Ykylwfvp45.4cm/s LEFT VENTRICLE The left ventricle is normal size. There is borderline to mild concentric left ventricular hypertroph y. The left ventricular systolic function is moderately impaired. The Ejection Fraction is 30%. There is global hypokinesis of the left ventricle. Tissue Doppler imaging reveals moderate left ventricula r diastolic dysfunction. RIGHT VENTRICLE The right ventricle is normal size. There is normal right ventricular wall thickness. The right ventr icular systolic function is normal. ATRIA The left atrium size is normal. The right atrium size is normal. The interatrial septum is intact wit h no evidence for an atrial septal defect or patent foramen ovale as noted on 2-D or Doppler imaging. AORTIC VALVE The aortic valve is normal in structure and function. The aortic valve is trileaflet. Doppler and Col or Flow revealed trace aortic regurgitation. There is no significant aortic valvular stenosis. There is no aortic valvular vegetation. MITRAL VALVE The mitral valve is normal in structure and function. There is no evidence of mitral valve prolapse. There is no mitral valve stenosis. Doppler and Color-flow revealed mild to moderate mitral regurgitat ion. TRICUSPID VALVE The tricuspid valve is normal in structure and function. Doppler and Color Flow revealed mild tricusp id regurgitation. There is mild pulmonary hypertension. The PA pressure was estimated at 37 mmHg. The re is no tricuspid valve prolapse or vegetation. There is no tricuspid valve stenosis. PULMONIC VALVE The pulmonic valve is not well visualized. GREAT VESSELS The aortic root is normal in size. The ascending aorta is normal in size. The IVC is normal in size a nd collapses >50% with inspiration. PERICARDIAL EFFUSION There is no evidence of significant pericardial effusion. Critical Notification Critical Value: No <Conclusion> The left ventricular systolic function is moderately impaired. The Ejection Fraction is 30%. Trace aortic regurgitation. Mild to moderate mitral regurgitation. Mild tricuspid regurgitation. The PA pressure was estimated at 37 mmHg. There is no evidence of significant pericardial effusion. Signed by : Charles Fairbanks, Electronically Approved : 12/28/2018 12:12:57
--- NOTE | 2018-12-28 14:45 | PDOC2 ---
CYNTHIA GIFFORD DUMPCART DRIVER 12/28/18 1445: CARDIAC CONSULT DATE OF CONSULT Date of Consult DATE: 12/28/18 TIME: 14:24 REASON FOR CONSULT Reason for Consult: CHF REFERRING PHYSICIAN Referring Physician: Kristal SOURCE Source: Chart review, Patient HISTORY OF PRESENT ILLNESS HISTORY OF PRESENT ILLNESS This is a pleasant 78 yo male admitted for complains of SOA and weakness. Also complains of stool being black. He has been having orthopnea and CARRILLO in the last 2 days with some leg swelling. 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 Denies any chest pain or palpitations. He does have hx of CVA and CAD. No passing out or frequent dizziness. No prior hx of GI bleed. No abdominal pain but noted his stool to be black. PAST MEDICAL HISTORY Cardiovascular: AFIB, CAD, HTN, [place], Hyperlipidemia CENTRAL NERVOUS SYSTEM: CVA Renal/: Benign prostatic enlarg. Endocrine: Diabetes (2) PAST SURGICAL HISTORY Past Surgical History: No pertinent history FAMILY HISTORY Family History: Diabetes, Heart Disease SOCIAL HISTORY Smoke: No ALCOHOL: occassional Drugs: None Lives: with Family CURRENT MEDICATIONS CURRENT MEDICATIONS Current Medications Medications (Trade) Dose Ordered Sig/Roger Route PRN Reason Start Time Stop Time Status Last Admin Dose Admin Iohexol (Omnipaque 350 Mg/ml) 90 ml 1X ONCE IV 12/27/18 17:00 12/27/18 17:01 DC 12/27/18 17:00 Furosemide (Lasix) 20 mg 1X ONCE IVP 12/27/18 17:45 12/27/18 17:46 DC 12/27/18 17:56 Pantoprazole Sodium (Protonix) 40 mg DAILY08 PO 12/27/18 21:00 12/28/18 10:16 Finasteride (Proscar) 5 mg DAILY PO 12/28/18 10:00 12/28/18 10:16 Lisinopril (Prinivil) 10 mg DAILY PO 12/28/18 10:00 12/28/18 10:18 Metoprolol Tartrate (Lopressor) 50 mg BID PO 12/28/18 10:00 12/28/18 10:16 Tamsulosin HCl (Flomax) 0.8 mg DAILY PO 12/28/18 10:00 12/28/18 10:16 ALLERGIES ALLERGIES: Coded Allergies: No Known Drug Allergies (Unverified , 12/27/18) ROS Review of System 14 point ROs evaluated with pertinent positives noted per HPI PHYSICAL EXAM General: Alert, Oriented X3, Cooperative, No acute distress HEENT: Atraumatic, Mucous membr. moist/pink Lungs: Other (faint basilar crackles) Heart: Regular rate (Sr with LBBB), Other (3/6 systolic murmur to CHET border) Abdomen: Soft, No tenderness Extremities: No cyanosis, No edema Skin: No breakdown, No significant lesion Neuro: Normal speech, Sensation intact Psych/Mental Status: Mental status NL, Mood NL MUSCULOSKELETAL: Osteoarthritic changes both hands VITALS VITALS Vital Signs Date Time Temp Pulse Resp B/P (MAP) Pulse Ox O2 Delivery O2 Flow Rate FiO2 12/28/18 11:19 97.9 67 18 156/77 (103) 96 Room Air 97.9 12/28/18 07:25 2 LABS Lab: Laboratory Tests Test 12/27/18 16:12 12/27/18 16:17 12/27/18 21:31 12/28/18 02:55 White Blood Count 6.0 x10^3/uL (4.0-11.0) 6.8 x10^3/uL (4.0-11.0) Red Blood Count 2.00 x10^6/uL (4.30-5.70) 2.74 x10^6/uL (4.30-5.70) Hemoglobin 6.0 g/dL (13.0-17.5) 8.2 g/dL (13.0-17.5) Hematocrit 18.5 % (39.0-53.0) 24.3 % (39.0-53.0) Mean Corpuscular Volume 93 fL (79-100) 89 fL (79-100) Mean Corpuscular Hemoglobin 30 pg (25-35) 30 pg (25-35) Mean Corpuscular Hemoglobin Concent 33 g/dL (31-37) 34 g/dL (31-37) Red Cell Distribution Width 14.9 % (11.5-14.5) 16.4 % (11.5-14.5) Platelet Count 222 x10^3/uL (140-400) 205 x10^3/uL (140-400) Neutrophils (%) (Auto) 56 % (31-73) 48 % (31-73) Lymphocytes (%) (Auto) 26 % (24-48) 34 % (24-48) Monocytes (%) (Auto) 14 % (0-9) 15 % (0-9) Eosinophils (%) (Auto) 3 % (0-3) 3 % (0-3) Basophils (%) (Auto) 2 % (0-3) 1 % (0-3) Neutrophils # (Auto) 3.3 x10^3uL (1.8-7.7) 3.2 x10^3uL (1.8-7.7) Lymphocytes # (Auto) 1.6 x10^3/uL (1.0-4.8) 2.3 x10^3/uL (1.0-4.8) Monocytes # (Auto) 0.8 x10^3/uL (0.0-1.1) 1.0 x10^3/uL (0.0-1.1) Eosinophils # (Auto) 0.2 x10^3/uL (0.0-0.7) 0.2 x10^3/uL (0.0-0.7) Basophils # (Auto) 0.1 x10^3/uL (0.0-0.2) 0.1 x10^3/uL (0.0-0.2) Prothrombin Time 28.2 SEC (11.7-14.0) Prothromb Time International Ratio 2.7 (0.8-1.1) Activated Partial Thromboplast Time 43 SEC (24-38) Sodium Level 142 mmol/L (136-145) 143 mmol/L (136-145) Potassium Level 4.1 mmol/L (3.5-5.1) 3.5 mmol/L (3.5-5.1) Chloride Level 107 mmol/L (98-107) 105 mmol/L (98-107) Carbon Dioxide Level 24 mmol/L (21-32) 28 mmol/L (21-32) Anion Gap 11 (6-14) 10 (6-14) Blood Urea Nitrogen 20 mg/dL (8-26) 18 mg/dL (8-26) Creatinine 0.9 mg/dL (0.7-1.3) 1.1 mg/dL (0.7-1.3) Estimated GFR (Cockcroft-Gault) 81.6 64.7 BUN/Creatinine Ratio 22 (6-20) Glucose Level 118 mg/dL (70-99) 80 mg/dL (70-99) Calcium Level 8.3 mg/dL (8.5-10.1) 8.2 mg/dL (8.5-10.1) Total Bilirubin 0.4 mg/dL (0.2-1.0) Aspartate Amino Transf (AST/SGOT) 21 U/L (15-37) Alanine Aminotransferase (ALT/SGPT) 42 U/L (16-63) Alkaline Phosphatase 59 U/L (46-116) Troponin I Quantitative < 0.017 ng/mL (0.000-0.055) OI-Qwn-X-Type Natriuretic Peptide 3879 pg/mL (0-449) Total Protein 5.9 g/dL (6.4-8.2) Albumin 3.2 g/dL (3.4-5.0) Albumin/Globulin Ratio 1.2 (1.0-1.7) Lipase 143 U/L (73-393) Urine Collection Type Unknown Urine Color Yellow Urine Clarity Clear Urine pH 6.5 Urine Specific [place] 1.015 Urine Protein 30 mg/dL (NEG-TRACE) Urine Glucose (UA) Negative mg/dL (NEG) Urine Ketones (Stick) Negative mg/dL (NEG) Urine Blood Negative (NEG) Urine Nitrite Negative (NEG) Urine Bilirubin Negative (NEG) Urine Urobilinogen Dipstick 1.0 mg/dL (0.2 mg/dL) Urine Leukocyte Esterase Negative (NEG) Urine RBC 1-2 /HPF (0-2) Urine WBC Occ /HPF (0-4) Urine Squamous Epithelial Cells Occ /LPF Urine Bacteria 0 /HPF (0-FEW) Glucose (Fingerstick) 130 mg/dL (70-99) Magnesium Level 1.9 mg/dL (1.8-2.4) Thyroid Stimulating Hormone (TSH) 2.563 uIU/mL (0.358-3.74) Test 12/28/18 08:10 12/28/18 12:02 Glucose (Fingerstick) 89 mg/dL (70-99) 92 mg/dL (70-99) ASSESSMENT/PLAN ASSESSMENT/PLAN 1. Acute anemia with GI bleed/melena: Hgb initially at 6 then 8.2 post transfusion. source remain unclear with S/P EGD 2. Acute on chronic systolic CHF: appears compensated 3. LBBB: no prior for comparison 4. Cardiomyopathy: EF at 30%, no prior for comparison, appears compensated 5. PAFIB: presently on SR. 6. Hx of CAD; unclear details and no notation of any past stents. 7. HTN: labile 8. DM2/HLP Recommendations 1. Future outpt colonoscopy per GI 2. Pt with no CP but will need ischemic workup once GI issues and anemia are treated and resolved 3. Will intensify CM meds. Increase lisinopril. Continue BB and statin 4. Stop coumadin for now and start on ECASA 81 mg daily for stroke prevention if OK with GI. 5. Pending w/u both GI and cardiac Future ROOF BOLTER-D and LAAO referral is a possibility 6. Lasix therapy. Follow up in office. FABRIZIO KELLEY MD 12/28/18 5800: CARDIAC CONSULT ASSESSMENT/PLAN ASSESSMENT/PLAN Patient seen and examined. Agree with [employer]'s assessment and plan. Acute on chronic systolic heart failure better compensated. 2-D echo showed LVEF 30%. Plan ischemic evaluation as an outpatient. Consider biventricular ICD/ROOF BOLTER-D implantation if there is no ischemia on stress test. PAF maintaining sinus rhythm. Continue workup for anemia per GI team. Thank you for your consultation. CYNTHIA GIFFORD APRN Dec 28, 2018 14:45 FABRIZIO KELLEY MD Dec 28, 2018 17:15
[2018-12-28] MEDS ORDERED: FUROSEMIDE 20 MG/2 ML VIAL. IVP ONE (15:00)
[2018-12-28] MEDS ORDERED: POTASSIUM CHLORIDE 20 MEQ TABLET.ER. PO ONE (15:00)
--- NOTE | 2018-12-28 15:15 | RAD ---
EXAM: CHEST 2 VIEWS. HISTORY: Congestive heart failure. COMPARISON: 12/27/2018. FINDINGS: Frontal and lateral views of the chest are obtained. The left hemidiaphragm is mildly elevated. Mild basilar predominant interstitial opacities persist. Small pleural effusions are suspected. There is no pneumothorax. The heart is mildly enlarged. There are atherosclerotic calcifications of the aorta. IMPRESSION: 1. Mild pulmonary edema persists. 2. Mild cardiomegaly. Electronically signed by: Skyler Lowry MD (12/28/2018 3:12 PM) [facility]
[2018-12-28] MEDS ORDERED: WARFARIN 2 MG TABLET. PO SCH (16:00)
--- NOTE | 2018-12-28 18:54 | HP ---
ADMIT DATE: 12/27/2018 CHIEF COMPLAINT: Shortness of breath. HISTORY OF PRESENT ILLNESS AND HOSPITAL COURSE: This patient is a 78-year-old male with known history of coronary artery disease, previous CVA and chronic atrial fibrillation, came to the office complaining of shortness of breath. He was found to have a 10-pound weight gain and crackles on auscultation and evidence of congestive heart failure. Therefore, he was transferred directly to the Emergency Room for further evaluation. Of note, the patient's INR was 2.3 and stable. During hospital evaluation, he was found to have significant anemia of hemoglobin less than 7 as well as evidence of congestive heart failure on chest x-ray and BNP. Due to these findings, he was directly admitted to the hospital for further evaluation initially by GI Medicine and subsequently by Cardiology. He was diuresed and given transfusion and admitted to a monitored bed. PAST MEDICAL HISTORY: Significant for: 1. Coronary artery disease, status post [place]. 2. Chronic atrial fibrillation. 3. Previous cerebrovascular accident. 4. Type 2 diabetes. 5. Hypertension. 6. High cholesterol. 7. BPH. ALLERGIES: The patient exhibits no allergies. FAMILY HISTORY: Significant for mother who was with complications of diabetes and heart disease; father who was with complications of prostate cancer and heart disease; a brother who was with diabetes and heart disease and a sister who was with complications of diabetes. SOCIAL HISTORY: The patient has never smoked. He does not use alcohol significantly; did use alcohol 15 years ago. The patient lives alone, but has excellent social support from his daughter and family members. The patient recently traveled from [place] and since that trip, he has been having increasing shortness of breath over the last 2 weeks. MEDICATIONS ON ADMISSION: Lisinopril 10 mg daily, metoprolol 50 mg b.i.d., Coumadin 2 mg daily, metformin 500 mg b.i.d., atorvastatin 20 mg daily, omeprazole 20 mg daily, Myrbetriq 25 mg daily, tamsulosin 0.4 mg 2 tablets daily, finasteride 5 mg daily. REVIEW OF SYSTEMS: Significant for recent weight gain of approximately 10 pounds, increasing shortness of breath, decreased ability to walk and right-sided weakness consistent with his previous CVA, shortness of breath and family states that the patient has been somewhat jaundiced appearing in the last week or so. The patient denies any nausea, vomiting, diarrhea, fever, cough, or congestion. PHYSICAL EXAMINATION: GENERAL: This is a well-nourished 78-year-old male, in mild distress. He is alert and oriented x 3. HEENT: Benign with facial droop from previous cerebrovascular accident. CARDIAC: Irregularly irregular with a grade 2/3 systolic ejection murmur. LUNGS: Clear anteriorly with crackles in the bases. ABDOMEN: Soft, nontender. EXTREMITIES: There are 2+ pulses with 2+ pitting edema. NEUROLOGIC: Showed previous CVA findings and some right-sided weakness to his arm more than usual. ASSESSMENT: 1. Anemia of unknown etiology. 2. 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 3. Type 2 diabetes. 4. Hypertension. 5. High cholesterol. 6. Chronic atrial fibrillation. 7. Previous cerebrovascular accident with some right-sided residual. 8. Coronary artery disease. 9. Benign prostatic hypertrophy with history of retention. 10. Long-term anticoagulation on Coumadin. 11. Ejection fraction of 30%. 12. Mild pulmonary hypertension. PLAN: To proceed with cardiology consultation, diurese the patient and proceed with blood transfusion as ordered by ER and monitor the patient's symptoms. JULIET POSEY MD DR: JUAN RAMON/jazmin JOB#: [id number] / [id number]
[2018-12-28] MEDS ORDERED: ATORVASTATIN CALCIUM 20 MG TABLET PO SCH (21:00)
--- NOTE | 2018-12-29 01:07 | CONS ---
DATE OF CONSULTATION: GASTROENTEROLOGY CONSULTATION REFERRING PHYSICIAN: Danish Giraldo M.D. REASON FOR CONSULTATION: Anemia. HISTORY OF PRESENT ILLNESS: A 78-year-old male who is admitted to [facility] with about a 2- to 3-week history of fatigue, shortness of air and dizziness. Family said that the patient also began having neurologic signs suggestive of stroke with a facial droop, but no dysphagia or odynophagia. There has been some blood in the stools. His hemoglobin was found to be 6. He, otherwise, gives minimal additional history. No additional complaints. PAST MEDICAL HISTORY: History of CVA, history of anemia and congestive heart failure. MEDICATIONS: Presently are Protonix and morphine. SOCIAL HISTORY: Nondrinker, nonsmoker. FAMILY HISTORY: Not obtainable. REVIEW OF SYSTEMS: As per records. PHYSICAL EXAMINATION: VITAL SIGNS: Temperature is 98.4, pulse 63, respiratory rate 18 and blood pressure 177/74. HEENT EXAMINATION: Normocephalic and atraumatic head. Pupils and extraocular muscles are not tested. Sclerae anicteric. NECK: Supple. LUNGS: Clear. CARDIOVASCULAR EXAMINATION: Reveals an S1 and S2, without S3, S4 or appreciable murmur. ABDOMEN: Exam reveals a soft abdomen. Normoactive bowel sounds, without appreciable hepatosplenomegaly. EXTREMITIES: Exam reveals no cyanosis, clubbing or edema. LABORATORY STUDIES: INR was 2.7. Sodium 142, potassium 4.1, chloride 107, bicarb is 24, BUN 20, creatinine 0.9, glucose 118 and calcium is 8.3. Total bilirubin 0.4, AST of 21, ALT of 42 and alk phos of 89. Troponin 0.017. Total protein 5.9. Albumin 3.2. Lipase 143. Hemoglobin is 8.2, hematocrit 24.3, white count 6.8 and platelet count is 205,000. IMPRESSION AND PLAN: Anemia, most likely iron deficiency in nature. We will recommend endoscopic evaluation after transfusion of several units of blood. The patient will be on PPI therapy. We will proceed with EGD today to further assess. If this is unrevealing, an outpatient colonoscopy to further assess the anemia would be pursued. I would like to thank Dr. Giraldo for allowing us to consult and participate in this patient's care. SHAKIRA GARCIA MD DR: TODD/jazmin JOB#: [id number] / [id number]
[2018-12-29 03:53] VITALS: BP 152/67
[2018-12-29 05:24] LABS: BASO # 0.1 x10^3/uL (0.0-0.2); BASO % 1 % (0-3); EOS # 0.3 x10^3/uL (0.0-0.7); EOS % 6 % (0-3); HEMATOCRIT 24.8 % (39.0-53.0); HEMOGLOBIN 8.4 g/dL (13.0-17.5); LYMPH # 1.9 x10^3/uL (1.0-4.8); LYMPH % 36 % (24-48); MEAN CORPUSCULAR HEMOGLOBIN 30 pg (25-35); MEAN CORPUSCULAR HGB CONC 34 g/dL (31-37); MEAN CORPUSCULAR VOLUME 87 fL (79-100); MONO # 0.8 x10^3/uL (0.0-1.1); MONO % 15 % (0-9); NEUT # 2.2 x10^3uL (1.8-7.7); NEUT % 42 % (31-73); PLATELET COUNT 208 x10^3/uL (140-400); RED BLOOD COUNT 2.84 x10^6/uL (4.30-5.70); RED CELL DISTRIBUTION WIDTH 16.7 % (11.5-14.5); WHITE BLOOD COUNT 5.2 x10^3/uL (4.0-11.0)
[2018-12-29 06:04] LABS: CALCIUM 8.5 mg/dL (8.5-10.1); CHOLESTEROL/HDL RATIO 2.3; GFR 72.3; POTASSIUM 3.8 mmol/L (3.5-5.1)
[2018-12-29 07:15] VITALS: BP 166/65
[2018-12-29] MEDS: INSULIN LISPRO 300 UNITS/3 ML INSULN.PEN. SQ SCH ×2 (07:30→11:30)
[2018-12-29] MEDS ORDERED: POTASSIUM CHLORIDE 20 MEQ TABLET.ER. PO SCH (08:00)
[2018-12-29] MEDS ORDERED: ASPIRIN ENTERIC COATED 81 MG TABLET.DR. PO SCH (08:00)
[2018-12-29] MEDS ORDERED: NON FORMULARY ITEM (Mirabegron (Myrbetriq) 25 MG) PO SCH (09:00)
[2018-12-29] MEDS ORDERED: FUROSEMIDE 40 MG TABLET. PO SCH (09:00)
[2018-12-29] MEDS ORDERED: LISINOPRIL 20 MG TABLET PO SCH (09:00)
[2018-12-29] MEDS: FINASTERIDE 5 MG TABLET. PO SCH (09:26)
[2018-12-29] MEDS: TAMSULOSIN 0.4 MG CAP.ER.24H. PO SCH (09:26)
[2018-12-29] MEDS: METOPROLOL TART IMMED RELEASE 50 MG TABLET. PO SCH (09:27)
[2018-12-29] MEDS: PANTOPRAZOLE 40 MG TABLET.DR. PO SCH (09:28)
[2018-12-29] MEDS ORDERED: POTA20TA4 PO (10:44)
[2018-12-29] MEDS ORDERED: LISI-334 PO (10:44)
[2018-12-29] MEDS ORDERED: Pantoprazole PO (10:44)
[2018-12-29] MEDS ORDERED: FURO40TA4 PO (10:44)
[2018-12-29] MEDS ORDERED: FERR325T14 PO (10:44)
[2018-12-29] MEDS ORDERED: ASPI-612 PO (10:45)
--- NOTE | 2018-12-29 11:17 | PDOC ---
Subjective: Subjective: Indicates eating okay, denies pain and bleeding. Objective: Objective: D/w cardiology yesterday - ASA instead of Coumadin preferred. Vital Signs: Vital Signs Date Time Temp Pulse Resp B/P (MAP) Pulse Ox O2 Delivery O2 Flow Rate FiO2 12/29/18 09:27 55 166/65 12/29/18 08:00 Room Air 2.0 12/29/18 07:15 98.2 16 96 98.2 Labs: Laboratory Tests Test 12/28/18 12:02 12/28/18 16:36 12/28/18 20:27 12/29/18 03:45 Glucose (Fingerstick) 92 mg/dL 117 mg/dL 113 mg/dL White Blood Count 5.2 x10^3/uL Red Blood Count 2.84 x10^6/uL Hemoglobin 8.4 g/dL Hematocrit 24.8 % Mean Corpuscular Volume 87 fL Mean Corpuscular Hemoglobin 30 pg Mean Corpuscular Hemoglobin Concent 34 g/dL Red Cell Distribution Width 16.7 % Platelet Count 208 x10^3/uL Neutrophils (%) (Auto) 42 % Lymphocytes (%) (Auto) 36 % Monocytes (%) (Auto) 15 % Eosinophils (%) (Auto) 6 % Basophils (%) (Auto) 1 % Neutrophils # (Auto) 2.2 x10^3uL Lymphocytes # (Auto) 1.9 x10^3/uL Monocytes # (Auto) 0.8 x10^3/uL Eosinophils # (Auto) 0.3 x10^3/uL Basophils # (Auto) 0.1 x10^3/uL Sodium Level 142 mmol/L Potassium Level 3.8 mmol/L Chloride Level 107 mmol/L Carbon Dioxide Level 26 mmol/L Anion Gap 9 Blood Urea Nitrogen 19 mg/dL Creatinine 1.0 mg/dL Estimated GFR (Cockcroft-Gault) 72.3 Glucose Level 76 mg/dL Calcium Level 8.5 mg/dL Triglycerides Level 33 mg/dL Cholesterol Level 106 mg/dL LDL Cholesterol, Calculated 53 mg/dL VLDL Cholesterol, Calculated 7 mg/dL Non-HDL Cholesterol Calculated 60 mg/dL HDL Cholesterol 46 mg/dL Cholesterol/HDL Ratio 2.3 Test 12/29/18 07:37 Glucose (Fingerstick) 80 mg/dL Imaging: EGD 12/28 non-erosive gastritis Echocardiogram <Conclusion> The left ventricular systolic function is moderately impaired. The Ejection Fraction is 30%. Trace aortic regurgitation. Mild to moderate mitral regurgitation. Mild tricuspid regurgitation. The PA pressure was estimated at 37 mmHg. There is no evidence of significant pericardial effusion. PE: GEN: NAD, up to chair LUNGS: room air ABD: S/ND/NT NEURO/PSYCH: A & O 3 A/P: Anemia, melena - Hgb stable Cardiomyopathy, PAFib, h/o CAD -- Plans for DC - okay per GI. Follow-up for outpt colonoscopy - our office will arrange. Consider iron. CECILE DE LEON Dec 29, 2018 11:17
[2018-12-29 11:20] VITALS: BP 136/70
--- NOTE | 2018-12-29 13:09 | PDOC ---
ADWOA SHI TEAM LEADER/RESEARCH PSYCHOLOGIST 12/29/18 1309: CARDIO Progress Notes Date and Time Date of Service 12/29/18 Time of Evaluation 1310 Subjective Subjective: No Chest Pain, No shortness of breath Vitals Vitals Vital Signs Date Time Temp Pulse Resp B/P (MAP) Pulse Ox O2 Delivery O2 Flow Rate FiO2 12/29/18 11:20 97.9 60 16 136/70 (92) 99 Room Air 97.9 12/29/18 08:00 2.0 Weight Weight [ ] Input and Output Intake and Output Intake and Output 12/29/18 06:59 Intake Total 1400 ml Output Total 625 ml Balance 775 ml Intake Oral 1400 ml Output Urine Total 625 ml # Voids 4 Laboratory Labs Laboratory Tests Test 12/28/18 16:36 12/28/18 20:27 12/29/18 03:45 12/29/18 07:37 Glucose (Fingerstick) 117 mg/dL (70-99) 113 mg/dL (70-99) 80 mg/dL (70-99) White Blood Count 5.2 x10^3/uL (4.0-11.0) Red Blood Count 2.84 x10^6/uL (4.30-5.70) Hemoglobin 8.4 g/dL (13.0-17.5) Hematocrit 24.8 % (39.0-53.0) Mean Corpuscular Volume 87 fL (79-100) Mean Corpuscular Hemoglobin 30 pg (25-35) Mean Corpuscular Hemoglobin Concent 34 g/dL (31-37) Red Cell Distribution Width 16.7 % (11.5-14.5) Platelet Count 208 x10^3/uL (140-400) Neutrophils (%) (Auto) 42 % (31-73) Lymphocytes (%) (Auto) 36 % (24-48) Monocytes (%) (Auto) 15 % (0-9) Eosinophils (%) (Auto) 6 % (0-3) Basophils (%) (Auto) 1 % (0-3) Neutrophils # (Auto) 2.2 x10^3uL (1.8-7.7) Lymphocytes # (Auto) 1.9 x10^3/uL (1.0-4.8) Monocytes # (Auto) 0.8 x10^3/uL (0.0-1.1) Eosinophils # (Auto) 0.3 x10^3/uL (0.0-0.7) Basophils # (Auto) 0.1 x10^3/uL (0.0-0.2) Sodium Level 142 mmol/L (136-145) Potassium Level 3.8 mmol/L (3.5-5.1) Chloride Level 107 mmol/L (98-107) Carbon Dioxide Level 26 mmol/L (21-32) Anion Gap 9 (6-14) Blood Urea Nitrogen 19 mg/dL (8-26) Creatinine 1.0 mg/dL (0.7-1.3) Estimated GFR (Cockcroft-Gault) 72.3 Glucose Level 76 mg/dL (70-99) Calcium Level 8.5 mg/dL (8.5-10.1) Triglycerides Level 33 mg/dL (0-150) Cholesterol Level 106 mg/dL (0-200) LDL Cholesterol, Calculated 53 mg/dL (0-100) VLDL Cholesterol, Calculated 7 mg/dL (0-40) Non-HDL Cholesterol Calculated 60 mg/dL (0-129) HDL Cholesterol 46 mg/dL (40-60) Cholesterol/HDL Ratio 2.3 Test 12/29/18 11:21 Glucose (Fingerstick) 122 mg/dL (70-99) Physical Exam HEENT: Neck Supple W Full Motion Chest: Symmetric LUNGS: Clear to Auscultation Heart: S1S2, RRR, murmurs (2/6 systolic murmur) Abdomen: Soft N/T Extremities: No Edema Neurology: alert, oriented, follow commands Assessment Assessment 1. Acute anemia with GI bleed/melena: Hgb initially at 6 then 8.2 post transfusion. Stable at 8.4. source remain unclear with S/P EGD 2. Acute on chronic systolic CHF: appears compensated 3. LBBB: no prior for comparison 4. Cardiomyopathy: EF at 30%, no prior for comparison, appears compensated 5. PAFIB: presently on SR. 6. Hx of CAD; details unclear 7. HTN: better 8. DM2/HLP Recommendations Outpatient ischemic eval following outpatient GI workup Consider biventricular ICD/FOUNDER-D implantation if there is no ischemia on stress test. Optimization therapy; ACEi, BB, lasix Continue ASA, statin Consider referral for MAYCO closure device Follow up in our office with Dr. Fairbanks as scheduled FABRIZIO FAIRBANKS MD 12/29/18 1630: CARDIO Progress Notes Assessment Assessment Patient seen and examined. Agree with TELEPHONE ADVICE NURSE's assessment and plan. Acute on chronic systolic heart failure better compensated. 2-D echo showed LVEF 30%. Plan outpatient ischemic evaluation with stress test. Agree with outpatient consideration for biventricular ICD and LAAO ADWOA SHI APRN Dec 29, 2018 13:09 FABRIZIO FAIRBANKS MD Dec 29, 2018 16:30
--- NOTE | 2018-12-29 14:16 | NUR ---
Discharge instructions given to patient and his daughter. Discussed new medications, signs and symptoms of anemia and heart failure, and the follow up appointments with Dr. Fairbanks and Dr. Ogden. Scripts and contact information given. Patient and daughter verbalized understanding.
== END 2018-12-29 14:04 | disposition home or self-care (01) | DRG 377 ==
LOC: ER 15:43 → 6 SOUTH 16:56
PROVIDERS: ADMIT Family Medicine; ATTEND Family Medicine
PROC: 30233N1 Transfusion of Nonautologous Red Blood Cells into Peripheral Vein, Percutaneous Approach (ICD-10-PCS; 2018-12-28)
PROC: 0DJ08ZZ Inspection of Upper Intestinal Tract, Via Natural or Artificial Opening Endoscopic (ICD-10-PCS; principal; 2018-12-28 07:30)
DX: K29.71 Gastritis, unspecified, with bleeding (principal); I50.43 Acute on chronic combined systolic (congestive) and diastolic (congestive) heart failure; I42.9 Cardiomyopathy, unspecified; K92.1 Melena; D50.0 Iron deficiency anemia secondary to blood loss (chronic); I44.7 Left bundle-branch block, unspecified; I48.0 Paroxysmal atrial fibrillation; I77.810 Thoracic aortic ectasia; I27.20 Pulmonary hypertension, unspecified; I11.0 Hypertensive heart disease with heart failure; E11.51 Type 2 diabetes mellitus with diabetic peripheral angiopathy without gangrene; E78.00 Pure hypercholesterolemia, unspecified; E78.5 Hyperlipidemia, unspecified; I25.10 Atherosclerotic heart disease of native coronary artery without angina pectoris; I48.2 Chronic atrial fibrillation; N40.0 Benign prostatic hyperplasia without lower urinary tract symptoms; I25.2 Old myocardial infarction; Z79.01 Long term (current) use of anticoagulants; Z79.84 Long term (current) use of oral hypoglycemic drugs; Z79.899 Other long term (current) drug therapy; Z86.73 Personal history of transient ischemic attack (TIA), and cerebral infarction without residual deficits; Z83.3 Family history of diabetes mellitus; Z82.49 Family history of ischemic heart disease and other diseases of the circulatory system; Z80.42 Family history of malignant neoplasm of prostate
CPT/HCPCS: 36415; 43235; 70450; 71045; 71046; 71275; 80048; 80053; 80061; 81001; 82962; 83690; 83735; 83880; 84443; 84484; 85025; 85610; 85730; 86850; 86900; 86901; 86920; 93005; 93306; 96374; J1815; J1940; J2001; J2704; P9016; Q9967; 99285-25

== ENCOUNTER → 2019-03-28 | Outpatient (CLI) | payer MEDICARE ==
[~2019-03-28] MED LIST: ASPI-612 PO; ATOR20TA58 PO; FERR325T14 PO; FINA5TAB4 PO; FURO40TA4 PO; LISI-334 PO; LISI10TA2 PO; METF500T16 PO; METO50TA6 PO; MIRA25TA PO; OMEP20CA10 PO; POTA20TA4 PO; Pantoprazole PO; REGADENOSON 0.4 MG/5 ML DISP.SYRIN. IV ONE; TAMS0.4C97 PO; WARF2TAB96 PO
--- NOTE | 2019-03-30 13:07 | RAD ---
MR#: [id number] Date of Study: 03/28/2019 Ordering Physician: FABRIZIO KELLEY, Referring Physician: ESSENCE BOSS Tech: RT Elaine LamasR) (N) APPROVED REPORT Test Type: Pharmacological Stress Nurse/Tech: Cynthia Tavares R.N. Test Indications: cad Cardiac History: cad, mi-2001, htn, dm Medications: see ehr Medical History: see ehr Resting ECG: SR, pvc noted, LBBB Resting Heart Rate: 54 bpm Resting Blood Pressure: 159/68mmHg Pretest Chest Pain: No chest pain Nurse/Tech Notes lungs cta, heart tones regular Consent: The procedure was explained to the patient in lay terms. Informed consent was witnessed. Marcus eout was entered into [employer]. History and Stress Test performed by RA Olivera Pharm. Details Pharmacologic stress testing was performed using 0.4mg per 5ml of regadenoson given intravenously ove r 7-10 seconds. Stress Symptoms No chest pain or symptoms. POST EXERCISE Reason for Termination: Infusion complete Target HR: No Max HR: 91 bpm Max Blood Pressure: 161/55mmHg Chest Pain: No. Arrhythmia: Yes. few multi focal PVCs noted ST Change: No. INTERPRETATION Stress EKG Conclusion: No evidence of significant ischemia based on EKG Imaging Protocol IMAGE PROTOCOL: Rest Tc-99m/stress Tc-99m 1 day Rest: Stress: Viability: Radiopharm.Tc99m SywupwldtBc33k Sestamibi Dose7.3mCi 27.7mCi Duration 15min. 13min. Img Date 03/28/2019 03/28/2019 Inj-Img Yfnf52ybe. 60min. Rest Admin Site:IV - Left AntecubitalAdministrator:RT Belkys Lamas)(N) Stress Admin Site: IV - Left AntecubitalAdministrator: RA Olivera STRESS DATA End Diast. Vol.169.0mlAv. Heart Rate59.0bpm End Syst. Vol.92.0mlCO Index BSA0.0L/min Myocardial Hece025.0gEject. Woqofhgg52.0% Stress Rates Pk. Fill Rate1.61EDV/secLVtime Pk. Fill 209.70msec Pk. Empty Rate1.50ESV/secLVtime Pk. Hujbg505.04msec /3 Pk. Fill0.65EDV/sec Stress Scores Regional WT1.00Summed WT18.00 Regional WM0.00Summed WM31.00 LV Perfusion There is a large sized mostly fixed inferior wall defect. This appears to be non-ischemic in nature a s it appears worse on rest images than stress. Wall Motion There is moderate global hypokinesis with an EF of 45% LV Perf. Quant 17 Seg. SSS7.00 17 Seg. SRS11.00 17 Seg. SDS2.00 Stress Defect Extent (% LAD)12.50Rest Defect Extent (% LAD)17.50Rev. Defect Extent (% LAD)0.00 Stress Defect Extent (% LCX) 8.80Rest Defect Extent (% LCX)0.00Rev. Defect Extent (% LCX)0.00 Stress Defect Extent (% RCA)2.20Rest Defect Extent (% RCA)31.10Rev. Defect Extent (% RCA)0.00 Stress Defect Extent (% SHI)8.30Rest Defect Extent (% SHI)16.30Rev. Defect Extent (% SHI)0.00 Other Information Quality:Fair Risk Assessment: Moderate Risk Conclusion 1. No evidence of stress induced EKG changes 2. Fixed inferior wall defect. Suspect diaphragmatic attenuation versus non-ischemic pattern of perfu luly. 3. Moderate LV dysfunction. EF 45% 4. Moderate risk for future CV events. Signed by : Tho Marquez, Electronically Approved : 03/28/2019 15:02:36
== END | disposition home or self-care (01) ==
LOC: NM 09:35
PROVIDERS: ATTEND Internal Medicine Cardiovascular Disease
DX: I25.10 Atherosclerotic heart disease of native coronary artery without angina pectoris (principal)
CPT/HCPCS: 78452; 93017; A9500; J2785

== ENCOUNTER → 2019-08-16 | Outpatient (CLI) | payer MEDICARE ==
[~2019-08-16] MED LIST changes: -OMEP20CA10 PO; +OMEP20CA16 PO; -REGADENOSON 0.4 MG/5 ML DISP.SYRIN. IV ONE
--- NOTE | 2019-08-16 15:14 | CARD ---
MR#: [id number] Date of Study: 08/16/2019 Ordering Physician: FABRIZIO KELLEY, Referring Physician: FABRIZIO KELLEY, Tech: Luisa Pinedo RDCS APPROVED REPORT EXAM: Two-dimensional and M-mode echocardiogram with Doppler and color Doppler. Other Information Quality : AverageHR: 54bpm Rhythm : NSR INDICATION Hypertension/HCVD DM 2D DIMENSIONS RVDd3.0 (2.9-3.5cm)IVSd0.9 (0.7-1.1cm) Aortic Root(2D)3.6 (2.0-3.7cm)LVDd5.2 (3.9-5.9cm) LVOT Diameter2.2 (1.8-2.4cm)PWd1.1 (0.7-1.1cm) LVDs4.2 (2.5-4.0cm)FS (%) 18.1 % SV47.3 mlLVEF(%)37.3 (>50%) Aortic Valve AoV Peak Lauri.101.7cm/Dennis Peak GR.4.1mmHg LVOT Peak Lauri.85.6cm/sAVA (VMAX)3.29cm2 Mitral Valve MV E Phhezbgj63.2cm/sMV DECEL DIMX167gu MV A Rcdthepr71.6cm/sE/A Ratio0.4 MV A Qcwvdbfx444yf Pulmonary Valve PV Peak Ylooogjv56.0cm/s Tricuspid Valve TR P. Hdizsauf364qj/sTR Peak Gr.22mmHg Pulmonary Vein S1 Rfafxljq97.9cm/sD2 Lngyufdx25.0cm/s PVa unhghvvb327evli LEFT VENTRICLE The left ventricle is normal size. There is normal left ventricular wall thickness. The left ventricu lar systolic function is moderately diminished. Severe hypokinesis of basal inferior and posterior w alls. The ejection fraction is estimated at 30-35%. Transmitral Doppler flow pattern is Grade I-abnor mal relaxation pattern. There is no ventricular septal defect visualized. RIGHT VENTRICLE The right ventricle is normal size. There is normal right ventricular wall thickness. The right ventr icular systolic function is normal. ATRIA The left atrium size is normal. The right atrium size is normal. The interatrial septum is intact wit h no evidence for an atrial septal defect or patent foramen ovale as noted on 2-D or Doppler imaging. AORTIC VALVE The aortic valve is normal in structure and function. Doppler and Color Flow revealed trace to mild a ortic regurgitation. There is no significant aortic valvular stenosis. MITRAL VALVE The mitral valve is normal in structure and function. There is no evidence of mitral valve prolapse. There is no mitral valve stenosis. Doppler and Color-flow revealed mild mitral regurgitation. TRICUSPID VALVE The tricuspid valve is normal in structure and function. Doppler and Color Flow revealed mild tricusp id regurgitation. PAP is estimated at 25 mmHg. There is no tricuspid valve stenosis. PULMONIC VALVE The pulmonary valve is normal in structure and function. Doppler and Color Flow revealed trace to mil d pulmonic valvular regurgitation. There is no pulmonic valvular stenosis. GREAT VESSELS The aortic root is normal in size. The ascending aorta is normal in size. The IVC is normal in size a nd collapses >50% with inspiration. PERICARDIAL EFFUSION There is no evidence of significant pericardial effusion. Critical Notification Critical Value: No <Conclusion> The left ventricular systolic function is moderately diminished. Severe hypokinesis of basal inferior and posterior darnell. The ejection fraction is estimated at 30-35%. Transmitral Doppler flow pattern is Grade I-abnormal relaxation pattern. Trace to mild aortic regurgitation. Mild mitral regurgitation. Mild tricuspid regurgitation. PAP is estimated at 25 mmHg. There is no evidence of significant pericardial effusion. Signed by : Fabrizio Kelley, Electronically Approved : 08/16/2019 15:14:06
== END | disposition home or self-care (01) ==
LOC: ECHO 12:38
PROVIDERS: ATTEND Internal Medicine Cardiovascular Disease
DX: I08.8 Other rheumatic multiple valve diseases (principal); I50.22 Chronic systolic (congestive) heart failure
CPT/HCPCS: 93306

== ENCOUNTER 2019-10-02 09:27 | Observation (INO) | payer MEDICARE ==
[2019-10-02] VITALS (12 sets, daily range): BP systolic 145–190; BP diastolic 71–86
[~2019-10-02] VITALS: Ht 157.5 cm; Wt 58.6 kg
[~2019-10-02 09:27] MED LIST changes: +IV RINGERS,LACTATED 1000ML 1,000 ML IV SCH
[2019-10-02] MEDS ORDERED: MIDAZOLAM HCL/PF 2 MG/2 ML VIAL. ONE (09:40)
[2019-10-02] MEDS ORDERED: PROPOFOL 20 ML IV ONE (09:40)
[2019-10-02] MEDS ORDERED: BACITRACIN 50,000 UNIT in IV NORMAL SALINE 250ML 250 ML IRR ONE (09:45)
[2019-10-02] MEDS ORDERED: ceFAZolin SODIUM IV Push 1 GM VIAL. IVP ONE ×3 (09:45→18:00)
[2019-10-02] MEDS ORDERED: PROPOFOL 50 ML IV ONE (09:46)
[2019-10-02 10:34] LABS: HEMATOCRIT 37.4 % (39.0-53.0); HEMOGLOBIN 12.7 g/dL (13.0-17.5); RED BLOOD COUNT 3.88 x10^6/uL (4.30-5.70); RED CELL DISTRIBUTION WIDTH 13.6 % (11.5-14.5); WHITE BLOOD COUNT 4.9 x10^3/uL (4.0-11.0)
[2019-10-02 10:43] LABS: PROTHROMBIN TIME PATIENT 14.4 SEC (11.7-14.0)
--- NOTE | 2019-10-02 10:47 | EKG ---
[facility] [address] [place] [address] Test Date: 2019-10-02 Test Time: 10:22:56 Pat Name: CASSIUS HERRERA Department: Room: Gender: M Terrazzo Supervisor: : 1940 Requested By: FABRIZIO FAIRBANKS Order Number: [id number] Reading MD: Fabrizio Fairbanks Measurements Intervals [place] Rate: 53 P: 30 MS: 210 QRS: -32 QRSD: 144 T: 40 QT: 478 QTc: 451 Interpretive Statements SINUS RHYTHM ABNORMAL LEFT AXIS DEVIATION LEFT ANTERIOR FASCICULAR BLOCK NON SPECIFIC INTRAVENTRICULAR BLOCK Electronically Signed On 10-23-2019 8:53:19 CDT by Fabrizio Fairbanks
[2019-10-02 10:58] LABS: CALCIUM 8.3 mg/dL (8.5-10.1); GFR 72.1; POTASSIUM 3.5 mmol/L (3.5-5.1)
[2019-10-02] MEDS ORDERED: IODIXANOL 320 MG/ML 100 ML VIAL. ONE (11:56)
[2019-10-02] MEDS ORDERED: LIDOCAINE 1% Multi-Dose 20 ML VIAL. ONE (11:56)
[2019-10-02] MEDS ORDERED: LIDOCAINE 2%/EPI 1:100,000 20 ML VIAL. ONE (11:58)
[2019-10-02] MEDS ORDERED: CONTRAST GIVEN. MC PRN (12:45)
[2019-10-02] MEDS ORDERED: IODIXANOL 320 MG/ML 100 ML VIAL. IART ONE (12:45)
[2019-10-02] MEDS ORDERED: LIDOCAINE 2%/EPI 1:100,000 20 ML VIAL. IJ ONE (12:45)
[2019-10-02] MEDS ORDERED: NO ANTICOAGULANT THERAPY. MC PRN (14:30)
[2019-10-02] MEDS ORDERED: oxyCODONE/APAP 5/325 1 TAB TABLET PO PRN (14:30)
--- NOTE | 2019-10-02 14:45 | CARD ---
MR#: [id number] Date of Study: 10/02/2019 Ordering Physician: FABRIZIO FAIRBANKS, Referring Physician: FABRIZIO FAIRBANKS, Tech: APPROVED REPORT EXAM Implantation of Biotronik biventricular implantable cardioverter defibrillator/cardiac resynchronizat ion therapy-defibrillation. Defibrillation threshold regiment at the time of implantation. FL TIME: 43.3 MINS DOSE: 176 GYCM2 CONTRAST: 75 ML INDICATIONS Primary prevention of sudden cardiac and cardiac resynchronization therapy in a patient with ch ronic systolic heart failure, ischemic cardiomyopathy and cardiac dyssynchrony as evidenced by prolon ged QRS interval IMPLANTED DEVICES After explaining the risks, benefits and alternative options, informed consent was obtained from linda ent. Patient was brought to the cardiac Tissue Specialist and his left chest and shoulder were prepped and marcia ped in the usual fashion. 20 mL of 2% lidocaine was infiltrated into the skin and subcutaneous tissue s for local anesthesia. An incision was made over the left infraclavicular fossa and using blunt diss ection and cautery a pocket was created. Venous access was obtained the left subclavian vein with the help of a venogram after attempts using fluoroscopy guidance failed, and 9 Faroese coronary sinus she ath was inserted. Contrast injections were performed within the right atrium using CASS2 catheter and coronary sinus was engaged. With the balloontipped catheter inflated, venogram was obtained to ident chanel the cardiac veins for placement of left ventricular lead. We initially placed the left ventricle lead in the middle cardiac vein but after the sheath was removed the lead dislodged probably secondar y to acute takeoff of the vein. We then tried the small cardiac vein but the thresholds were high. Fi abdirahman, a Biotronik quadripolar left ventricular lead model Sentus Pro MRI OTW QP L85, serial #[id number] was positioned in the posterolateral vein. Venous access was again obtained and 10.5 and 6 Faroese sheath inserted. A Biotronik bipolar active fi xation right ventricle lead model Plexa ProMRI, serial #[id number] was positioned in the right ventricu lar apex under fluoroscopy guidance. Finally, a Biotronik bipolar active fixation right atrial lead m zohaib Solia serial #[id number] was positioned in the right atrial appendage under fluoroscopy guidance. The leads were secured into place and attached to a Biotronik biventricular ICD/CHISEL WORKER-D generator model Ilivia 7HF-T QP serial number [id number]. The generator was placed in the pocket that was subsequentl y closed in 3 layers. Hemostasis was secured. Ventricular fibrillation was then induced to check the defibrillation threshold. Patient successfully converted to sinus rhythm with 15 J shock therapy with a shock impedance of 65 ohms. The right atria l lead showed a sensing amplitude of 4 mV, impedance of 510 ohms and a threshold of 0.5 was. The righ t ventricular lead showed a sensing amplitude of 20 mV, impedance of 700 ohms and a threshold of 0.4 V. The left ventricular lead showed a sensing amplitude of 10 mV, impedance of 860 ohms and a thresho ld of 0.5 V. Patient tolerated the procedure well. There were no immediate complications. CONCLUSION Successful implantation of Biotronik biventricular ICD/CHISEL WORKER-D for primary prevention of sudden cardiac and cardiac resynchronization therapy in a patient with chronic systolic heart failure and pro longed QRS interval. Defibrillation thresholds were measured at the time of implantation. Signed by : Fabrizio Fairbanks, Electronically Approved : 10/02/2019 14:45:10
--- NOTE | 2019-10-02 15:04 | RAD ---
AP portable chest radiograph 10/02/2019 Clinical History: Post pacemaker placement. An AP erect portable digital radiograph of the chest was obtained. Comparison study is dated 12/28/2018. A pacemaker is been placed into the left anterior chest. Leads extend to overlie the right atrium and right ventricle of the heart. The cardiac silhouette is mildly enlarged. The thoracic aorta is mildly tortuous. No pneumothorax or pleural effusion is seen. Prominence of pulmonary vasculature is seen suggesting mild CHF. Degenerative changes are seen involving the thoracic long the lumbar spine. IMPRESSION: Post pacemaker placement. No pneumothorax is seen. Electronically signed by: Sonido Tian MD (10/02/2019 3:01 PM) [facility] [place]
[2019-10-02] MEDS ORDERED: CEPH500T PO (16:43)
[2019-10-02] MEDS ORDERED: SACU1TAB PO (16:57)
[2019-10-02] MEDS ORDERED: WARFARIN 2 MG TABLET. PO SCH (17:00)
[2019-10-02] MEDS: METOPROLOL TART IMMED RELEASE 50 MG TABLET. PO SCH (17:35)
[2019-10-02] MEDS: FERROUS SULFATE 325 MG TABLET. PO SCH (20:30)
[2019-10-02] MEDS ORDERED: ATORVASTATIN CALCIUM 20 MG TABLET PO SCH (21:00)
[2019-10-03 03:20] VITALS: BP 174/81
[2019-10-03 07:00] VITALS: BP 160/80
[2019-10-03] MEDS ORDERED: amLODIPine BESYLATE 5 MG TABLET PO ONE (08:30)
--- NOTE | 2019-10-03 08:58 | RAD ---
Chest radiograph 10/03/2019 2:29 PM INDICATION: One day post pacemaker implantation COMPARISON: October 02, 2019 TECHNIQUE: Frontal and lateral views of the chest are provided. FINDINGS: The cardiomediastinal silhouette is within normal limits. Left chest wall cardiac device is identified in similar position. Improved pulmonary vascular congestion. No pleural effusions or pneumothorax. IMPRESSION: No acute cardiopulmonary process. Electronically signed by: Veronica Ahmadi MD (10/03/2019 8:55 AM) [id number]
[2019-10-03] MEDS ORDERED: TAMSULOSIN 0.4 MG CAP.ER.24H. PO SCH (09:00)
[2019-10-03] MEDS ORDERED: SACUBITRIL/VALSARTAN 24/26MG TABLET. PO SCH (09:00)
[2019-10-03] MEDS ORDERED: NON FORMULARY ITEM (Mirabegron (Myrbetriq) 25 MG) PO SCH (09:00)
[2019-10-03] MEDS ORDERED: FUROSEMIDE 40 MG TABLET. PO SCH (09:00)
[2019-10-03] MEDS ORDERED: FINASTERIDE 5 MG TABLET. PO SCH (09:00)
[2019-10-03] MEDS ORDERED: CEPHALEXIN 250 MG CAPSULE. PO SCH (09:00)
[2019-10-03] MEDS: METOPROLOL TART IMMED RELEASE 50 MG TABLET. PO SCH (09:11)
[2019-10-03] MEDS: FERROUS SULFATE 325 MG TABLET. PO SCH (09:11)
[2019-10-03 11:00] VITALS: BP 162/77
--- NOTE | 2019-10-03 12:21 | PDOC3 ---
CYNTHIA GIFFORD INFORMATION DELIVERY ANALYST 10/03/19 1221: Discharge Summary Visit Information Date of Admission: Oct 02, 2019 Date of Discharge: Oct 03, 2019 Admitting Diagnosis: chronic LBBB, ICM, chronic systolic CHF, CAD, PAFIB Final Diagnosis S/P BiV ICD, chronic LBBB, ICM, chronic systolic CHF, CAD, PAFIB Brief Hospital Course Allergies Allergies Coded Allergies Type Severity Reaction Last Updated Verified No Known Drug Allergies 12/27/18 No Vital Signs Vital Signs Date Time Temp Pulse Resp B/P (MAP) Pulse Ox O2 Delivery O2 Flow Rate FiO2 10/03/19 09:11 65 10/03/19 08:00 Room Air 10/03/19 07:00 98.3 20 160/80 (106) 96 98.3 10/02/19 15:40 2.0 Lab Results Laboratory Tests Test 10/02/19 10:15 10/02/19 17:14 10/02/19 20:46 10/03/19 07:42 White Blood Count 4.9 x10^3/uL (4.0-11.0) Red Blood Count 3.88 x10^6/uL (4.30-5.70) Hemoglobin 12.7 g/dL (13.0-17.5) Hematocrit 37.4 % (39.0-53.0) Mean Corpuscular Volume 97 fL (79-100) Mean Corpuscular Hemoglobin 33 pg (25-35) Mean Corpuscular Hemoglobin Concent 34 g/dL (31-37) Red Cell Distribution Width 13.6 % (11.5-14.5) Platelet Count 148 x10^3/uL (140-400) Prothrombin Time 14.4 SEC (11.7-14.0) Prothromb Time International Ratio 1.2 (0.8-1.1) Sodium Level 143 mmol/L (136-145) Potassium Level 3.5 mmol/L (3.5-5.1) Chloride Level 107 mmol/L (98-107) Carbon Dioxide Level 26 mmol/L (21-32) Anion Gap 10 (6-14) Blood Urea Nitrogen 19 mg/dL (8-26) Creatinine 1.0 mg/dL (0.7-1.3) Estimated GFR (Cockcroft-Gault) 72.1 Glucose Level 94 mg/dL (70-99) Calcium Level 8.3 mg/dL (8.5-10.1) Glucose (Fingerstick) 116 mg/dL (70-99) 131 mg/dL (70-99) 69 mg/dL (70-99) Test 10/03/19 11:30 Glucose (Fingerstick) 155 mg/dL (70-99) Laboratory Tests Test 10/02/19 17:14 10/02/19 20:46 10/03/19 07:42 10/03/19 11:30 Glucose (Fingerstick) 116 mg/dL (70-99) 131 mg/dL (70-99) 69 mg/dL (70-99) 155 mg/dL (70-99) Brief Hospital Course Mr. Bettencourt is a 79 yo male admitted for planned ALPINE PATROLLER-D placement. His prior EF was 30-35%. He had a successful implantation of Biotronik biventricular ICD/ALPINE PATROLLER-D for primary prevention of sudden cardiac and cardiac resynchronization therapy in a patient with chronic systolic heart failure and prolonged QRS interval. He tolerated the procedure well without immediate complications. CXR with no pneumothorax repeat interrogation revealed normal device. and Surgical pain is controlled, no SOA.. AOx3, LSCTA. No arrhythmias overnight and currently SR with bi-V pacing. BP was labile initially but improving after resumption of BP meds. Will increase entresto. Ambulatory without difficulty, left surgical incision is intact with steristrips, no erythema or swelling. Neurovascular status to LUE intact and sling is in place to LUE. CAD is clinically stable and CHF is compensated. Discussed DC instructions with daughter and pt. No new medications. Follow up in office in 2 weeks for wound check. Continue with home secondary prevention measures and HF regimen per GDMT. . BMP in 1-2 weeks Discharge Information Condition at Discharge: Stable Follow Up: Weeks (2) Disposition/Orders: D/C to Home w/ HH Scheduled Atorvastatin Calcium (Atorvastatin Calcium) 20 Mg Tablet, 20 MG PO HS for FOR CHOLESTEROL, #30 Ref 0 (Reported) Entered as Reported by: HUANG MOROCHO on 12/27/18 1039 Last Taken: Unknown Dose on 10/01/19 Last Action: Continued on 10/02/19 1645 by ERIKA GILBERT Ferrous Sulfate (Ferrous Sulfate) 325 Mg Tablet, 1 TAB PO BID for anemia, #60 Ref 3 Prescribed by: JULIET POSEY on 12/29/18 1044 Last Taken: Unknown Dose on 10/01/19 Last Action: Continued on 10/02/191644 by ERIKA GILBERT Finasteride (Finasteride) 5 Mg Tablet, 1 TAB PO DAILY for BPH, #30 Ref 11 (Reported) Entered as Reported by: HUANG MOROCHO on 12/27/182251 Last Taken: Unknown Dose on 10/01/19 Last Action: Continued on 10/02/191644 by ERIKA GILBERT Furosemide (Furosemide) 40 Mg Tablet, 40 MG PO DAILY for chf for 30 Days, #30 Prescribed by: JULIET POSEY on 12/29/181043 Last Taken: Unknown Dose on 10/01/19 Last Action: Continued on 10/02/191644 by ERIKA GILBERT Metformin Hcl (Metformin Hcl) 500 Mg Tablet, 500 MG PO BIDWMEALS for ANTI- DIABETIC, Ref 0 (Reported) Entered as Reported by: HUANG MOROCHO on 12/27/182258 Last Taken: Unknown Dose on 10/01/19 Last Action: Continued on 10/02/191644 by ERIKA GILBERT Metoprolol Tartrate (Metoprolol Tartrate) 50 Mg Tablet, 1 TAB PO BID for htn, #60 Ref 5 (Reported) Entered as Reported by: HUANG MOROCHO on 12/27/182251 Last Taken: Unknown Dose on 10/01/19 Last Action: Continued on 10/02/191644 by ERIKA GILBERT Mirabegron (Myrbetriq) 25 Mg Tab.er.24h, 25 MG PO DAILY for bladder control, (Reported) Entered as Reported by: HUANG MOROCHO on 12/27/182251 Last Taken: Unknown Dose on 10/01/19 Last Action: Converted on 10/02/191644 by ERIKA GILBERT Sacubitril/Valsartan (Entresto 49 mg-51 mg Tablet) 1 Each Tablet, 1 EACH PO BID for ICM for 30 Days, #60 Ref 2 Prescribed by: CYNTHIA GIFFORD on 10/03/19 1335 Tamsulosin Hcl (Flomax) 0.4 Mg Cap.er.24h, 2 CAP PO DAILY for retention, #30 Ref 11 (Reported) Entered as Reported by: HUANG MOROCHO on 12/27/182251 Last Taken: Unknown Dose on 10/01/19 Last Action: Continued on 10/02/191644 by ERIKA GILBERT Warfarin Sodium (Warfarin Sodium) 2 Mg Tablet, 2 MG PO DAILY for blood thinner, #30 (Reported) Entered as Reported by: HUANG MOROCHO on 12/27/182251 Last Taken: Unknown Dose on 09/26/19 Last Action: Continued on 10/02/191644 by ERIKA GILBERT Discontinued Medications Cephalexin (Cephalexin) 500 Mg Tablet, 500 MG PO BID for urinary infection, (Reported) Entered as Reported by: ERIKA GILBERT on 10/02/191642 Last Action: Converted on 10/02/191644 by ERIKA GILBERT Sacubitril/Valsartan (Entresto 24 mg-26 mg Tablet) 1 Each Tablet, 1 EACH PO DAILY for heart, (Reported) Entered as Reported by: ERIKA GILBERT on 10/02/191656 Last Action: Continued on 10/02/191712 by ERIKA GILBERT Patient Instructions Patient Instructions Must know & what to expect after device implant: 1. Your surgical dressing should be removed prior to discharge from the hospital, but allow the steri- strips to fall off naturally. 2. Activity restrictions: DO NOT raise arm above shoulder level, lift anything heavier than a gallon of milk, and no push or pull motions such as vacuuming/lawn mowing, no swinging motions (golf), etc for 4 weeks. 3. It is OK to use a cell phone or other electronic devices just be sure you do not store it in a breast pocket on the side where the device was placed. 4. Device will be interrogated prior to your discharge from the hospital and then every 3 months for defibrillators and every 6 months for pacemakers. You may be asked to have your device checked remotely from home as well, but this will depend on your particular physicians preference. 5. You may remove the arm immobilizer the day after device placement. Wear the arm immobilizer/splint at night (during sleep times) for 2 week to prevent unintended arm movement that can cause lead dislodgement. 6. Do not drive for one week as the task of driving may lead to unintended arm motion that may cause lead dislodgement. The seatbelt will also rub against the incision site & cause irritation. 7. It is our recommendation that you utilize Tylenol at home for pain control. You need to call our office if you are having uncontrollable pain at the incision site. 8. Keep your incision clean and dry. It is OK to shower. DO NOT submerge in bath, pool, or hot tub, until cleared by your doctor, as this could lead to increase risk of infection.. It is OK to use regular soap just do not scrub the incision site. Water spray from shower should not directly hit the incision. Be sure to blot dry not rub. 9. Inspect your incision daily. If you notice any increased redness, swelling, or drainage, or if you start running a fever, call the office immediately. The number is [phone]. 10. For women, if you need to protect against irritation from the bra straps, you can place a piece of gauze over the incision site for cushion. Please be sure to tape it loosely to allow air to the site & remove the gauze when you remove the bra. 11. Be sure to carry your device identification information card in your wallet/purse at all times. 12. It is OK to go through security at the airport with your device, but be sure to let the TSA know prior to proceeding as the security settings change depending on varying factors. Please do whatever is requested by security at that time. 13. Some of the newer devices may be MRI compatible but, currently, the use of these devices is not widespread, so you likely will not be able to have an MRI. Please clarify this with your physician. Special instructions for defibrillator patients: If your device recognizes a rhythm that requires treatment with a shock, you will most likely feel the shock. This is usually not a subtle feeling and it is uncomfortable. Please follow these steps if you receive a shock: Call the office if you receive one shock. Go to the emergency room if you receive two consecutive shocks- please have someone drive you & call 911 if nobody is available- DO NOT drive yourself. Call 911 if you receive more than 2 consecutive shocks. If at any time, you feel lightheaded or dizzy/faint, stop what you are doing & lie down immediately. If you are driving, get to the side of the road quickly, turn your car off & call 911 on your cell phone. DO NOT continue to drive as this may cause an accident that seriously injures yourself &/or others. Call the office at [phone] for any questions or concerns. FABRIZIO KELLEY MD 10/03/19 1513: Discharge Summary Brief Hospital Course Brief Hospital Course Patient seen and examined. Agree with TRAFFIC ASSISTANT's assessment and plan. Patient underwent successful biventricular ICD/ALPINE PATROLLER-D implantation yesterday. Incision looks good. Chest x-ray without any pneumothorax. Device interrogation showed normal function. Agree with increasing entresto dose for better blood pressure control. Follow-up with our office as scheduled. Discharge Information Scheduled Atorvastatin Calcium (Atorvastatin Calcium) 20 Mg Tablet, 20 MG PO HS for FOR CHOLESTEROL, #30 Ref 0 (Reported) Entered as Reported by: HUANG MOROCHO on 12/27/182258 Last Taken: Unknown Dose on 10/01/19 Last Action: Continued on 10/02/191644 by ERIKA GILBERT Ferrous Sulfate (Ferrous Sulfate) 325 Mg Tablet, 1 TAB PO BID for anemia, #60 Ref 3 Prescribed by: JULIET POSEY on 12/29/181043 Last Taken: Unknown Dose on 10/01/19 Last Action: Continued on 10/02/191644 by ERIKA GILBERT Finasteride (Finasteride) 5 Mg Tablet, 1 TAB PO DAILY for BPH, #30 Ref 11 (Reported) Entered as Reported by: HUANG MOROCHO on 12/27/182251 Last Taken: Unknown Dose on 10/01/19 Last Action: Continued on 10/02/191644 by ERIKA GILBERT Furosemide (Furosemide) 40 Mg Tablet, 40 MG PO DAILY for chf for 30 Days, #30 Prescribed by: JULIET POSEY on 12/29/181043 Last Taken: Unknown Dose on 10/01/19 Last Action: Continued on 10/02/191644 by ERIKA GILBERT Metformin Hcl (Metformin Hcl) 500 Mg Tablet, 500 MG PO BIDWMEALS for ANTI- DIABETIC, Ref 0 (Reported) Entered as Reported by: HUANG MOROCHO on 12/27/182258 Last Taken: Unknown Dose on 10/01/19 Last Action: Continued on 10/02/191644 by ERIKA GILBERT Metoprolol Tartrate (Metoprolol Tartrate) 50 Mg Tablet, 1 TAB PO BID for htn, #60 Ref 5 (Reported) Entered as Reported by: HUANG MOROCHO on 12/27/182251 Last Taken: Unknown Dose on 10/01/19 Last Action: Continued on 10/02/191644 by ERIKA GILBERT Mirabegron (Myrbetriq) 25 Mg Tab.er.24h, 25 MG PO DAILY for bladder control, (Reported) Entered as Reported by: HUANG MOROCHO on 12/27/182251 Last Taken: Unknown Dose on 10/01/19 Last Action: Converted on 10/02/191644 by ERIKA GILBERT Sacubitril/Valsartan (Entresto 49 mg-51 mg Tablet) 1 Each Tablet, 1 EACH PO BID for ICM for 30 Days, #60 Ref 2 Prescribed by: CYNTHIA GIFFORD on 10/03/19 1335 Tamsulosin Hcl (Flomax) 0.4 Mg Cap.er.24h, 2 CAP PO DAILY for retention, #30 Ref 11 (Reported) Entered as Reported by: HUANG MOROCHO on 12/27/182251 Last Taken: Unknown Dose on 10/01/19 Last Action: Continued on 10/02/191644 by ERIKA GILBERT Warfarin Sodium (Warfarin Sodium) 2 Mg Tablet, 2 MG PO DAILY for blood thinner, #30 (Reported) Entered as Reported by: HUANG MOROCHO on 12/27/182251 Last Taken: Unknown Dose on 09/26/19 Last Action: Continued on 10/02/191644 by ERIKA GILBERT Discontinued Medications Cephalexin (Cephalexin) 500 Mg Tablet, 500 MG PO BID for urinary infection, (Reported) Entered as Reported by: ERIKA GILBERT on 10/02/191642 Last Action: Converted on 10/02/191644 by ERIKA GILBERT Sacubitril/Valsartan (Entresto 24 mg-26 mg Tablet) 1 Each Tablet, 1 EACH PO DAILY for heart, (Reported) Entered as Reported by: ERIKA GILBERT on 10/02/19 1657 Last Action: Continued on 10/02/191712 by CYNTHIA MORALES APRN Oct 03, 2019 12:21 FABRIZIO KELLEY MD Oct 03, 2019 15:13
[2019-10-03] MEDS ORDERED: SACU1TAB7 PO (13:35)
--- NOTE | 2019-10-03 13:46 | SNU/HH DC ---
DISCHARGE WITH HOME HEALTH DISCHARGE INFORMATION: Discharge Date: Oct 03, 2019 Final Diagnosis: ICM, chronic LBBB, CAD, HTN, HLP, S/P BIOINFORMATICS RESEARCH TECHNICIAN-D placement Condition on Discharge: Stable CODE STATUS: Code Status: Full HOME HEALTH: Face to Face: I certify this patient is under my care and that I, or a nurse practitioner or physician's property assistant working with me, had a face to face encounter that meets the physician face to face encounter requirements with this patient on []. Medical Complications: CHF, HTN, CO RN For Eval/Treatment: Yes Physical Therapy For: Evalulation/Treatment Occupational Therapy For: Evaluation/Treatment Home Health Aide For: Self-care MANAGER SIMULATION For: Community Resources Pt Meets Homebound Status: Unsteady balance w/ amb, POST DISCHARGE ORDERS: Activity Instructions for Disc: Activity as tolerated, Other, see below (see post AICD placement pt. instructions ) Weight Bearing Status after Di: Full weight bearing Other wound/incision instructi: Keep surgical wound CORPORATE STRATEGY ANALYST CHECKS AFTER DISCHARGE: Checks after discharge: Check blood press - daily, Weigh Yourself Daily Comment: 2L Fluid restriction FOLLOW-UP: Follow up with: with cardiology nurse on 10/16 at 1030 for wound check medication reeeval Additional Instructions: INR per PCP. BMP in 1-2 weeks TREATMENT/EQUIPMENT ORDERS: Adaptive Equipment Issued: None CERTIFICATION STATEMENT: Certification Statement: Certification Statement: Based on the above finding, I certify that this patient is confined to the home and needs intermittent mcfp care, physical therapy and/or speech therapy, or continues to need occupational therapy.~ This patient is under my care, and I have initiated the establishment of the plan of care.~ This patient will be followed by myself or a community physician who will periodically review the plan of care. Home Meds Active Scripts Sacubitril/Valsartan (Entresto 49 mg-51 mg Tablet) 1 Each Tablet, 1 EACH PO BID for ICM for 30 Days, #60 TAB 2 Refills Prov:CYNTHIA GIFFORD APRN 10/03/19 Ferrous Sulfate (FERROUS SULFATE) 325 Mg Tablet, 1 TAB PO BID for anemia, #60 TAB 3 Refills Prov:JULIET POSEY MD 12/29/18 Furosemide (FUROSEMIDE) 40 Mg Tablet, 40 MG PO DAILY for chf for 30 Days, #30 TAB Prov:JULIET POSEY MD 12/29/18 Reported Medications Metformin Hcl (METFORMIN HCL) 500 Mg Tablet, 500 MG PO BIDWMEALS for ANTI- DIABETIC, TAB 0 Refills 12/27/18 Atorvastatin Calcium (ATORVASTATIN CALCIUM) 20 Mg Tablet, 20 MG PO HS for FOR CHOLESTEROL, #30 TAB 0 Refills 12/27/18 Metoprolol Tartrate (METOPROLOL TARTRATE) 50 Mg Tablet, 1 TAB PO BID for htn, #60 TAB 5 Refills 12/27/18 Warfarin Sodium (WARFARIN SODIUM) 2 Mg Tablet, 2 MG PO DAILY for blood thinner, #30 TAB 12/27/18 Mirabegron (MYRBETRIQ) 25 Mg Tab.er.24h, 25 MG PO DAILY for bladder control, TAB.SR 12/27/18 Tamsulosin Hcl (FLOMAX) 0.4 Mg Cap.er.24h, 2 CAP PO DAILY for retention, #30 CAP 11 Refills 12/27/18 Finasteride (FINASTERIDE) 5 Mg Tablet, 1 TAB PO DAILY for BPH, #30 TAB 11 Refills 12/27/18 Discontinued Reported Medications Sacubitril/Valsartan (Entresto 24 mg-26 mg Tablet) 1 Each Tablet, 1 EACH PO DAILY for heart, TAB 10/02/19 Cephalexin (CEPHALEXIN) 500 Mg Tablet, 500 MG PO BID for urinary infection, TAB 10/02/19 CYNTHIA GIFFORD APRN Oct 03, 2019 13:46
--- NOTE | 2019-10-03 13:54 | NUR ---
SS following up with discharge planning. SS reviewed pt chart. Pt is from home and is currently on room air. Discharge orders received for home healthcare. SS received notification that pt was with [facility], ; fax [phone]. SS phoned and faxed discharge orders and referral to [facility]. Pt's RN notified.
[2019-10-03] MEDS ORDERED: WARFARIN 3 MG TABLET. PO ONE ×2 (14:30→14:45)
--- NOTE | 2019-10-03 15:28 | NUR ---
Discharge: Teaching verbal and written. Patient primarily Mongolian speaking. daughter translated discharge instructions. Patient and daughters verbalized understanding. Reviewed pacemaker precaution and education, wound care, labs, ect. Prescription for follow-up labs send with patient. Prescription for entreso sent to pharmacy by Nancy. All belongings with patient. Left arm immobilizer in place. Pacemaker box and card with patient. patient ambulated off of unit via wheelchair accompanied by nurse and daughter.
[2019-10-03] MEDS ORDERED: SACUBITRIL/VALSARTAN 49/51MG TABLET. PO SCH (21:00)
[2019-10-04] MEDS ORDERED: WARFARIN 2 MG TABLET. PO SCH (16:00)
[2019-10-04] MEDS ORDERED: metFORMIN 500 MG TABLET PO SCH (17:00)
== END 2019-10-03 15:15 | disposition home health service (06) ==
LOC: SURG 09:27 → 2 SOUTH 09:45
PROVIDERS: ADMIT Internal Medicine Cardiovascular Disease; ATTEND Internal Medicine Cardiovascular Disease
DX: I25.5 Ischemic cardiomyopathy (principal); I44.7 Left bundle-branch block, unspecified; I11.0 Hypertensive heart disease with heart failure; I50.22 Chronic systolic (congestive) heart failure; I25.10 Atherosclerotic heart disease of native coronary artery without angina pectoris; I48.0 Paroxysmal atrial fibrillation; Z79.01 Long term (current) use of anticoagulants
CPT/HCPCS: 33225; 33249; 36415; 71045; 71046; 75820; 80048; 82962; 85027; 85610; 93005; 93641; 96374; 96376; C1769; C1882; C1895; C1898; C1900; G0378; G0379; J0690; J2250; J2704; J3490; J7050; Q9967; J7030

== ENCOUNTER → 2021-10-06 | Outpatient (CLI) | payer MEDICARE ==
[~2021-10-06] MED LIST changes: -ASPI-612 PO; +ASPI-886 PO; +CEPH500T PO; -IV RINGERS,LACTATED 1000ML 1,000 ML IV SCH; -LISI-334 PO; +LISI10TA16 PO; -LISI10TA2 PO; +LISI20TA18 PO; +POTA-121 PO; -POTA20TA4 PO; +REGADENOSON 0.4 MG/5 ML DISP.SYRIN. IV ONE; +SACU1TAB PO; +SACU1TAB7 PO
--- NOTE | 2021-10-06 15:56 | CARD ---
MR#: [id number] Date of Study: 10/06/2021 Ordering Physician: FABRIZIO KELLEY, Referring Physician: FABRIZIO KELLEY Tech: Holly Navarro [facility] APPROVED REPORT EXAM: Two-dimensional and M-mode echocardiogram with Doppler and color Doppler. Other Information Quality : AverageHR: 67bpm Rhythm : NSR INDICATION Cardiac Disease: CAD RISK FACTORS Hypertension Hyperlipidemia 2D DIMENSIONS RVDd2.9 (2.9-3.5cm)Left Atrium(2D)3.8 (1.6-4.0cm) IVSd1.3 (0.7-1.1cm)Aortic Root(2D)3.5 (2.0-3.7cm) LVDd4.0 (3.9-5.9cm)LVOT Diameter2.2 (1.8-2.4cm) PWd1.3 (0.7-1.1cm)LVDs2.7 (2.5-4.0cm) FS (%) 31.8 %SV42.6 ml LVEF(%)60.4 (>50%) Aortic Valve AoV Peak Lauri.86.7cm/sAoV VTI17.6cm AO Peak GR.3.0mmHgLVOT Peak Lauri.74.5cm/s AO Mean GR.2mmHgAVA (VMAX)3.15cm2 Mitral Valve MV E Aohwvynu74.3cm/sMV DECEL [id number] MV A Eltdnuge86.2cm/sE/A Ratio0.5 Pulmonary Valve PV Peak Snouwkig60.8cm/s Tricuspid Valve TR P. [id number]/sTR Peak Gr.18mmHg LEFT VENTRICLE The left ventricle is normal size. There is mild concentric left ventricular hypertrophy. Moderate gl obal left ventricular systolic dysfunction. Severe hypokinesis of posterobasal wall. The ejection fra ction is 35%. Transmitral Doppler flow pattern is Grade I-abnormal relaxation pattern. RIGHT VENTRICLE The right ventricle is normal size. There is normal right ventricular wall thickness. The right ventr icular systolic function is normal. ATRIA The left atrium size is normal. The right atrium size is normal. The interatrial septum is intact wit h no evidence for an atrial septal defect or patent foramen ovale as noted on 2-D or Doppler imaging. AORTIC VALVE The aortic valve is normal in structure and function. Doppler and Color Flow revealed mild aortic reg urgitation. There is no significant aortic valvular stenosis. MITRAL VALVE The mitral valve is normal in structure and function. There is no evidence of mitral valve prolapse. There is no mitral valve stenosis. Doppler and Color-flow revealed mild mitral regurgitation. TRICUSPID VALVE The tricuspid valve is normal in structure and function. Doppler and Color Flow revealed trace tricus pid regurgitation. Estimated PAP 22-25 mmHg. There is no tricuspid valve stenosis. GREAT VESSELS The aortic root is normal in size. The ascending aorta is normal in size. The IVC is normal in size a nd collapses >50% with inspiration. PERICARDIAL EFFUSION There is no evidence of significant pericardial effusion. Critical Notification Critical Value: No <Conclusion> Moderate global left ventricular systolic dysfunction. Severe hypokinesis of posterobasal wall. The ejection fraction is 35%. Transmitral Doppler flow pattern is Grade I-abnormal relaxation pattern. Mild aortic regurgitation. Mild mitral regurgitation. Trace tricuspid regurgitation. Estimated PAP 22-25 mmHg. There is no evidence of significant pericardial effusion. Signed by : Fabrizio Kelley, Electronically Approved : 10/06/2021 15:55:59
--- NOTE | 2021-10-07 10:50 | RAD ---
MR#: [id number] Date of Study: 10/06/2021 Ordering Physician: FABRIZIO KELLEY, Referring Physician: ESSENCE BOSS Tech: RT Belkys Lamas) (N) APPROVED REPORT Test Type: Pharmacological Stress Nurse/Tech: Cynthia Tavares R.N. Test Indications: cad Cardiac History: cad, htn, pacemaker, smoker, stroke, dm Medications: see ehr Medical History: see ehr Resting ECG: AV paced Resting Heart Rate: 80 bpm Resting Blood Pressure: 122/66mmHg Pretest Chest Pain: No chest pain Nurse/Tech Notes lungs cta, heart tones regular Consent: The procedure was explained to the patient in lay terms. Informed consent was witnessed. Marcus eout was entered into [employer]. History and Stress Test performed by RT Belkys Lamas) (N) Pharm. Details Pharmacologic stress testing was performed using 0.4mg per 5ml of regadenoson given intravenously ove r 7-10 seconds. Stress Symptoms No chest pain or symptoms. POST EXERCISE Reason for Termination: Infusion complete Target HR: No Max HR: 118 bpm Max Blood Pressure: 119/61mmHg Chest Pain: No. Arrhythmia: No. ST Change: No. INTERPRETATION Stress EKG Conclusion: Baseline EKG showed AV paced rhythm. Nondiagnostic changes at peak stress. N o arrhythmias. Imaging Protocol IMAGE PROTOCOL: Rest Tc-99m/stress Tc-99m 1 day Rest: Stress: Viability: Radiopharm.Tc99m XcnufctwmAp45i Sestamibi Uayd2yRe 31.3mCi Duration 15min. 10min. Img Date 10/06/2021 10/06/2021 Inj-Img [id number]. 60min. Rest Admin Site:IV - Left AntecubitalAdministrator:RT Belkys Avery)(N) Stress Admin Site: IV - Left AntecubitalAdministrator: RT Belkys Lamas)(N) STRESS DATA End Diast. Vol.82.0mlAv. Heart Rate71.0bpm End Syst. Vol.40.0mlCO Index BSA0.0L/min Myocardial Eazq581.0gEject. Cqrcolne08.0% Stress Rates Pk. Fill Rate2.08EDV/secLVtime Pk. Fill 112.70msec Pk. Empty Rate2.68ESV/secLVtime Pk. Cdpxt576.96msec /3 Pk. Fill1.51EDV/sec Stress Scores Regional WT3.00Summed WT33.00 Regional WM0.00Summed WM12.00 LV Perfusion Scintigraphic images did not show any significant fixed or reversible defects. Wall Motion Mild left ventricular systolic dysfunction with ejection fraction calculated at 48%. LV Perf. Quant 17 Seg. SSS0.00 17 Seg. SRS0.00 17 Seg. SDS0.00 Stress Defect Extent (% LAD)0.00Rest Defect Extent (% LAD)0.00Rev. Defect Extent (% LAD)0.00 Stress Defect Extent (% LCX) 0.00Rest Defect Extent (% LCX)0.00Rev. Defect Extent (% LCX)0.00 Stress Defect Extent (% RCA)0.00Rest Defect Extent (% RCA)0.00Rev. Defect Extent (% RCA)0.00 Stress Defect Extent (% SHI)0.00Rest Defect Extent (% SHI)0.00Rev. Defect Extent (% SHI)0.00 Conclusion 1. Regadenoson cardioisotope stress test did not show any evidence of ischemia or infarct. 2. Mild left ventricular systolic dysfunction with ejection fraction calculated at 48%. 3. Low risk for cardiac events. Signed by : Fabrizio Kelley, Electronically Approved : 10/07/2021 10:49:54
== END ==
LOC: NM 10:07
PROVIDERS: ATTEND Internal Medicine Cardiovascular Disease
DX: I08.0 Rheumatic disorders of both mitral and aortic valves (principal); I25.10 Atherosclerotic heart disease of native coronary artery without angina pectoris
CPT/HCPCS: 78452; 93017; 93306; A9500; J2785; C8929